=== PATIENT | female | born 1935 | race Caucasian/White ===

== ENCOUNTER 2017-05-27 09:15 | Observation (INO) | payer MEDICARE, SELFPAY ==
[2017-05-27] VITALS (13 sets, daily range): BP systolic 115–218; BP diastolic 52–111; PULSE 59–91; RESP 15–24; TEMP 36.4–36.7; O2SAT 93–100; BMI 28.0; BMI 29.4
--- NOTE | 2017-05-27 09:21 | CT_ITS ---
STUDY: CT BRAIN WITHOUT CONTRAST REASON FOR EXAM: Female, 81 years old. Mental status change, decrease in responsiveness, complaining of dizziness, history of hypertension, diabetes questioned. RADIATION DOSAGE (If Supplied By Facility): CTDIvol = ( 44.99 ) mGy, DLP = ( 728.62 ) mGycm TECHNIQUE: Transaxial CT imaging of the brain was performed without administration of intravenous contrast material. Multiplanar coronal and sagittal images were reformatted. Individualized dose optimization techniques were used for this CT. COMPARISON: CT brain noncontrast 07/15/2015 FINDINGS: Normal soft tissue structures. There is hyperostosis frontalis internus. There is mild cerebral atrophy with widening of the extra-axial spaces and ventricular dilatation. There are areas of decreased attenuation within the white matter tracts of the supratentorial brain, consistent with microvascular disease changes. Normal basal ganglia and thalami. Normal brainstem. Normal cerebellum. There is no intracranial hemorrhage. There are no findings of an acute ischemic infarction. Mild stable opacification left sphenoid sinus. Intracranial arteriosclerosis of the carotid and vertebral arteries. The bilateral mastoid air cells are clear. CT/Brain/Head without Contrast IMPRESSION: Chronic involutional changes of the brain. There is no acute intracranial pathology. There is no significant interval change. Electronically Signed: Jesusita Wofl MD at 10:29 EDT , Service support ,
--- NOTE | 2017-05-27 09:22 | EKG12_ITS ---
Test Reason : MENTAL STATUS CHANGE Blood Pressure : / mmHG Vent. Rate : 072 BPM Atrial Rate : 072 BPM P-R Int : 126 ms QRS Dur : 080 ms QT Int : 414 ms P-R-T Axes : 053 -45 028 degrees QTc Int : 453 ms Sinus rhythm with occasional Premature ventricular complexes Left anterior fascicular block Nonspecific ST abnormality Abnormal ECG Confirmed by LAKIA SUMMERS, ADDIS ([id number]), writer editor SANDRA FIORE ([id number]) on 05/29/2017 12:55:50 PM Referred By: OSMANI Confirmed By:ADDIS DORMAN MD
[2017-05-27 09:26] LABS: Bedside Glucose 102 mg/dL (70-110)
[2017-05-27] MEDS: 0.9% Normal Saline 1,000 ML 150 ML IV ×2 (09:27→17:49)
--- NOTE | 2017-05-27 09:32 | RAD_ITS ---
STUDY: X-RAY CHEST REASON FOR EXAM: Female, 81 years old. Weakness TECHNIQUE: Single AP portable view of the chest. COMPARISON: 07/17/2015 FINDINGS: The lungs are hyperaerated. There is no demonstrated pleural abnormality. There is borderline cardiomegaly. Normal mediastinum and celena. Normal visualized pulmonary arteries. There is atherosclerotic calcification of the aortic arch with tortuosity. There are diffuse degenerative changes of the visualized thoracic spine. There is degenerative osteoarthritis of the bilateral shoulders. There is no demonstrated abnormality of the visualized soft tissue structures of the upper abdomen. RAD/Chest 1 View (Portable) IMPRESSION: Stable hyperinflation likely COPD. There is stable borderline cardiac size, atherosclerosis, degenerative changes. No acute cardiopulmonary disease. No significant interval change. Electronically Signed: Jesusita Wolf MD at 10:27 EDT , Service support ,
[2017-05-27 09:50] LABS: Bacteria 0 SEEN /hpf (None Seen); Color, Urine Straw (Yellow); Glucose, Dipstick Normal (Normal); Ketone-Dipstick 50 mg/dl (Negative); Leukocyte Esterase-Dipstick Negative /ul (Negative); Mucous, Urine 0 SEEN /hpf (<or=2+); Nitrite-Dipstick Negative (Negative); Occult Blood-Urine Negative /ul (Negative); Protein-Dipstick Negative (Negative); Red Blood Cells-Urine 0 SEEN /hpf (0-5); Specific Gravity, Urine 1.015 (1.002-1.030); Squamous Epithelial Cells - UA 0 SEEN /hpf (5-10); Urine Bilirubin Dipstick Negative (Negative); Urine Clarity Clear (Clear); Urine Urobilinogen Normal (Normal); White Blood Cells 0 SEEN /hpf (0-5)
[2017-05-27 10:22] LABS: ALB/GLOB Ratio 1.2 RATIO (0.9-2.4); AST(SGOT) 23 U/L (15-37); Alanine Aminotransfer ALT/SGPT 14 U/L (13-56); Albumin, Serum 3.7 g/dL (3.2-5.0); Alkaline Phosphatase 41 U/L (45-117); Anion Gap 11 (5-15); BUN 21 mg/dL (7-18); BUN/Creat Ratio 22.5 RATIO (10-20); Chloride 101 mmol/L (98-107); Creatinine, Serum 0.93 mg/dL (0.55-1.02); EST Glomerular Filtration Rate 61 mL/min (>60); Est Glom Filt Rate - Afr Amer 74 mL/min (>60); Estimated Creatinine Clearance 45.17 ml/min; Globulin 3.2 g/dL (2.2-4.2); Glucose 112 mg/dL (74-106); Potassium 3.9 mmol/L (3.5-5.1); Protein, Total 6.9 g/dL (6.4-8.2); Sodium Level 138 mmol/L (136-145)
--- NOTE | 2017-05-27 10:30 | CT_ITS ---
STUDY: CT ABDOMEN AND PELVIS WITHOUT CONTRAST REASON FOR EXAM: Female, 81 years old. ABD PAIN, HX-HTN, DB, DECREASED LEVEL OF RESPONSIVENESS. RADIATION DOSAGE (If Supplied By Facility): CTDIvol = ( 13.62 ) mGy, DLP = ( 772.23 ) mGycm TECHNIQUE: Transaxial images were obtained from the dome of the diaphragm to the symphysis pubis without oral contrast, and without intravenous contrast. Sagittal and coronal images were reconstructed. Individualized dose optimization techniques were used for this CT. COMPARISON: None. FINDINGS: The visualized lung bases are unremarkable. The visualized portions of the heart are within normal limits. Normal liver. Normal gallbladder and extrahepatic biliary system. Normal spleen. Normal pancreas. Normal bilateral adrenal glands. Normal right kidney. Normal left kidney. Normal visualized stomach. Normal small intestine. There are multiple colonic diverticula consistent with diverticulosis. There is non-visualization of the appendix. There is diffuse atherosclerotic calcification of the abdominal aorta, without a demonstrated aneurysm. Normal inferior vena cava. Normal retroperitoneum. The urinary bladder is decompressed with a Patrick catheter Normal abdominal wall. There are diffuse degenerative changes of the visualized lumbar spine. CT/Abdomen/Pelvis without Cont IMPRESSION: No acute intra-abdominal or intrapelvic abnormality. Diverticulosis. Severe aortoiliac atherosclerosis. Electronically Signed: Dang Jovel MD at 11:18 EDT Tel , Service support ,
[2017-05-27 10:31] LABS: Absolute Neutrophil Count 3.6 X10^3/uL (2.0-7.7); Basophil# 0.01 X10^3/uL; Basophil% 0.2 % (0-1); Eosinophil# 0.03 X10^3/uL; Eosinophils% 0.6 % (0-5); Hematocrit 41.9 % (37-47); Hemoglobin 13.5 g/dl (12.0-15.0); Lymphocyte % 22.6 % (19-41); Mean Corp Hgb Conc 32.2 g/gl (32-36); Mean Corpuscular Hgb 29.3 pg (27.0-32.0); Mean Corpuscular Volume 91.1 fL (81-99); Mean Platelet Vol. 9.5 fl (6.2-12.0); Monocyte# 0.43 X10^3/uL; Monocyte% 8.1 % (0-10); Neutrophil # 3.62 X10^3/uL (2.7-7.7); Neutrophil % 68.3 % (47-70); Platelet Count 222 K/mm3 (150-450); RBC Distribution Width CV 12.8 % (11.6-14.6); RBC Distribution Width SD 42.5 fl (35.1-43.9); White Blood Count 5.3 K/mm3 (4.4-11.0)
[2017-05-27 10:32] LABS: POSITIVE COUNT NO; POSITIVE DIFFERENTIAL NO; POSITIVE MORPHOLOGY NO
[2017-05-27] MEDS: Ondansetron 4 MG/2 ML Vial IV (11:31)
[2017-05-27] MEDS: Morphine 4 MG/ML Syringe IV (11:32)
--- NOTE | 2017-05-27 11:41 | ED.DCSUM_ITS ---
- ER Visit Summary Date of Service: 05/27/17 Chief Complaint: [Mental status change] History of Present Illness: The patient is a 81 F [presents to the emergency department with a mental status change. Patient's son went over to her home this morning like he normally does and noted that her paper had not gone inside the house. Patient was found in her bed and unresponsive to him. EMS was called. Patient last known well yesterday as 1 of the neighbors spoke with the patient around 5:30 PM last evening. Patient has been having issues with abdominal pain and back pain for about a month. Patient had an ultrasound recently that showed gallstones in her gallbladder and possible mass in 1 of her kidneys. On arrival the emergency department patient is answering questions and describes pain all over. Patient also states that she has been dizzy. Patient states she got up in the middle the night and had dizziness. Patient denies any vomiting. She denies any fever.] Physical Examination: [HEENT-PERRLA, EOMI. Cranial nerves II through XII grossly intact. TMs clear. Mucous membranes moist. No adenopathy. Cardiovascular-regular rate and rhythm without murmur or ectopy Lungs-clear to auscultation, chest wall stable without crepitus or subcu emphysema Abdomen-normoactive bowel sounds, soft, nontender, no rebound or rigidity, no peritoneal signs. Neuro exam-NIH stroke scale 0. Finger to nose and heel to torres testing within normal limits, negative Romberg, negative pronator drift. Hallpike maneuver does not elicit any nystagmus and does not reproduce patient's dizziness. Extremities-intact ?4, normal range of motion, normal pulses, atraumatic] Test Results: [EKG obtained on arrival showed a sinus rhythm with a ventricular rate of 72 bpm with some nonspecific ST changes noted. CBC with differential was normal. Chemistries unremarkable. LFTs were normal. Troponin was less than 0.02. Urinalysis was normal. CT scan of the brain showed chronic involutional changes. Chest x-ray showed some COPD changes otherwise nothing acute. CT abdomen pelvis without contrast showed nothing acute.] Emergency Department Course and Treatment: [Patient was medicated with morphine and Zofran for her pain.] Treatment Plan: [Patient will be admitted for further workup and evaluation.] Disposition: [Admit] Impression: [Mental status change Dizziness Back pain/abdominal pain] This note was generated with [employer] dictation software. It may contain incorrect words, spelling, and punctuation that were not noted in review of the chart prior to signing ED Disposition - Plan for ED Patient: Chief Complaint: Alt LOC Referrals: Roxann Simmons MD [Primary Care Provider] -
--- NOTE | 2017-05-27 13:04 | PCM.HP.STD ---
Problem List (1) Breast cancer Status: Resolved (2) Depression Status: Acute Qualifiers: Depression Type: unspecified Qualified Code(s): F32.9 - Major depressive disorder, single episode, unspecified (3) Diabetes mellitus type 2 in nonobese Status: Chronic (4) Hyperlipidemia Status: Chronic Qualifiers: Hyperlipidemia type: unspecified Qualified Code(s): E78.5 - Hyperlipidemia, unspecified (5) Hypertension Status: Chronic Qualifiers: Hypertension type: unspecified secondary hypertension Qualified Code(s): I15.9 - Secondary hypertension, unspecified History of Present Illness Date of Admission: 05/27/17 Chief Complaint: Found down The patient is a 81 year old F medical history of diabetes type 2, depression, essential hypertension, breast cancer status post left mastectomy who was found down at home this morning. Her family found her in bed less responsive and they activated the EMS who brought her to the emergency room. At the time that she came to the emergency room she was alert and oriented to time place and person . She states that she woke up to use the BR last night significantly dizzy and she tried to walk back to her bed without falling. She is noted to have no speech impairment, focal deficit, no loss of bladder or bowel control was noted. CT scan of the head in the emergency room is none acute. She did complain of abdominal and back pain in the emergency room and CT scan of the abdomen and pelvis was obtained and showed no acute intra-abdominal or intrapelvic abnormality but showed severe aortoiliac atherosclerosis. Past Medical History Past Medical History (Chronic Problems): Chronic Problems Hypertension (Chronic) Diabetes mellitus type 2 in nonobese (Chronic) Hyperlipidemia (Chronic) Allergies Penicillins Allergy (Verified 05/27/17 09:37) Hives Sulfa (Sulfonamide Antibiotics) Allergy (Verified 05/27/17 09:37) Hives tramadol Adverse Reaction (Verified 05/27/17 09:37) Upset Stomach AND HEADACHE Home Medications: Ambulatory Orders Medication Instructions Recorded Hydrochlorothiazide [Hctz] 12.5 mg PO DAILY 12/19/13 Losartan Potassium [Cozaar] 100 mg PO DAILY 12/19/13 Metformin HCl [Glucophage] 500 mg PO BIDCM 12/19/13 Calcium (Elemental) [Os-Florentin 500] 1,000 mg PO DAILY@0800 07/15/15 Cholecalciferol (Vitamin D3) 5,000 unit PO DAILY 07/15/15 [Vitamin D3] Simvastatin [Zocor] 20 mg PO QHS 07/15/15 Tamoxifen Citrate [Nolvadex] 20 mg PO DAILY 07/15/15 Surgical History: - - Mastectomy Psychiatric History: No pertinent psych hx [employer] PROFESSOR History: No pertinent [employer] PROFESSOR history Smoking Status: Never smoker - *Family History Maternal History Items: No pertinent history Review of Systems Comment: All Systems were reviewed with pertinent positives mentioned in the HPI above. VTE Information - Inpt Only VTE Present on Admission: No VTE Mechan Device Prophylaxis: SCD's VTE Pharm Prophylaxis ordered?: No - Physical Exam General: Alert, Oriented x3 Oral: Moist Mucosa Neck: Supple Lungs: Clear to auscultation Cardiovascular: Regular rate, Normal S1, Normal S2 Abdomen: Bowel Sounds Present, Soft, Non Tender Extremities: No edema Neurological: Cranial nerves II-XII grossly intact, Deep Tendon Reflexes 2+/4 and Symmetrical, Motor Exam 5/5 strength throughout Vital Signs Temp Pulse Resp BP Pulse Ox 97.8 F 65 16 141/94 H 97 05/27/17 12:41 05/27/17 12:41 05/27/17 12:41 05/27/17 12:41 05/27/17 12:41 Oxygen Delivery Method Room Air Weight: 75.4 kg Body Mass Index (BMI) 29.4 Assessment/Plan 1. Acute change in mental status; this has now resolved, it was preceded by intractable vertiginous symptoms, therefore will obtain MRI of the brain to rule out posterior circulation CVA. We will also obtain carotid Doppler ultrasound as well as echocardiogram , will continue cardiac rhythm monitoring and she will be placed on aspirin and statin. PT/OT/ST. 2. DM type II; we will hold off on her metformin for now, she emeka be placed on regular insulin sliding scale for glycemic spikes. 3. Dyslipidemia; she is on a statin. 4. Breast cancer ; status post left mastectomy, we will continue her on Tamoxifen. 5. Severe aortoiliac atherosclerosis; will obtain CTA of the abdomen and go from there. 6. DVT prophylaxis with Lovenox. Code Visit Inpatient E&M: 81078 Init Hosp L2
--- NOTE | 2017-05-27 13:56 | ECHOD_ITS ---
Reason For Study: Arrhythmia Procedure This was a 2D Doppler, Color Flow transthoracic echocardiogram. Exam performed portable in patient room. Left Ventricle Normal LV size. Left ventricular systolic function is normal. The estimated ejection fraction is 60 %. Transmitral diastolic flow velocities suggest mild (stage 1) diastolic dysfunction (reversed pattern). No regional wall motion abnormalities noted. Right Ventricle Normal RV size. Normal systolic function. Atria The left atrium is mildly enlarged. Normal right atrium. Mitral Valve There is mild to moderate mitral annular calcification. Mild (1+) eccentric mitral valve insufficiency. Tricuspid Valve Normal tricuspid valve. Mild (1+) tricuspid valve insufficiency. Pulmonary artery systolic pressure is 35 mmHg. Aortic Valve Trisinus/trileaflet aortic valve. Mild focal aortic valve calcification. Mild aortic stenosis. Pulmonic Valve Normal pulmonic valve. Great Vessels Normal aortic root. The pulmonary artery is normal size. Normal inferior vena cava. Pericardium/Pleural No pericardial effusion. MMode/2D Measurements & Calculations LVIDd: 4.8 cm IVSd: 0.96 cm LVOT diam: 1.9 cm LVIDs: 3.1 cm LVPWd: 0.77 cm LVOT area: 2.9 cm2 RVDd: 3.4 cm FS: 37.0 % Ao root diam: 3.1 cm LAV(MOD-bp): 53.6 ml EDV(MOD-sp4): 52.5 ml LA dimension: 4.7 cm LAV(MOD-bp) Indexed: 30.0 ml/m2 ESV(MOD-sp4): 16.0 ml LAV(MOD-sp2): 40.7 ml EF(MOD-sp4): 69.4 % LAV(MOD-sp4): 54.5 ml SV(MOD-sp4): 36.4 ml LA A4 area: 21.5 cm2 RA A4 area: 15.0 cm2 Time Measurements MV dec time: 0.12 sec Doppler Measurements & Calculations MV E max christopher: 104.5 cm/sec Lat Peak E' Christopher: 8.6 cm/sec Med Peak E' Christopher: 7.8 cm/sec MV A max christopher: 129.9 cm/sec E/E' lat: 12.2 E/E' med: 13.4 MV E/A: 0.80 MV V2 max: 158.7 cm/sec MV P1/2t max christopher: 117.8 cm/sec Ao V2 max: 214.9 cm/sec MV max P.1 mmHg MV P1/2t: 77.1 msec Ao max P.5 mmHg MV V2 mean: 89.3 cm/sec MV dec slope: 447.3 cm/sec2 Ao V2 mean: 145.5 cm/sec MV mean P.7 mmHg MVA(P1/2t): 2.9 cm2 Ao mean P.5 mmHg MV V2 VTI: 47.5 cm Ao V2 VTI: 50.3 cm MVA(VTI): 1.9 cm2 MARLIN(I,D): 1.8 cm2 MARLIN(V,D): 1.6 cm2 LV V1 max: 116.5 cm/sec SV(LVOT): 88.6 ml PA V2 max: 98.8 cm/sec LV V1 max P.4 mmHg LV V1 mean P.1 mmHg LV V1 mean: 83.8 cm/sec LV V1 VTI: 30.3 cm TR max christohper: 278.5 cm/sec TR max P.0 mmHg Interpretation Summary Normal LV size. Left ventricular systolic function is normal. The estimated ejection fraction is 60 %. The left atrium is mildly enlarged. Transmitral diastolic flow velocities suggest mild (stage 1) diastolic dysfunction (reversed pattern). Ordering Physician: Timi Acosta Referring Physician: Roxann Simmons Performed By: Palmira Daigle, CHELSEA, RVT
--- NOTE | 2017-05-27 13:57 | CDU_ITS ---
Reason For Study: CVA Rt. Velocities/BP Lt. Velocities/BP Prox CCA 54.6/9.82 cm/sec. Prox CCA 64.0/11.4 cm/sec. Mid CCA 78.2/14.1 cm/sec. Mid CCA 143.0/25.9 cm/sec. Dist CCA 92.6/19.3 cm/sec. Dist CCA 136.0/25.9 cm/sec. Prox ICA 86.2/17.6 cm/sec. Prox ICA 112.0/25.1 cm/sec. Mid ICA 86.8/22.3 cm/sec. Mid ICA 104.0/26.7 cm/sec. Dist ICA 101.0/28.1 cm/sec. Dist ICA 90.5/23.8 cm/sec. Rt. ICA/CCA = 101.0/78.2=1.3. Lt. ICA/CCA = 112.0/143.0=0.8. Prox ECA 54.5/0.0 cm/sec. Prox ECA 138.0/8.64 cm/sec. Rt. Vert. 47.5/12.2 cm/sec. Lt. Vert. 30.2/8.57 cm/sec. Right Extracranial There is heterogeneous, irregular atherosclerotic plaque noted in the right common carotid artery. There is heterogeneous, irregular atherosclerotic plaque noted in the right internal carotid artery. There is homogeneous, smooth atherosclerotic plaque noted in the right external carotid artery. Antegrade flow is noted in the right vertebral artery. There is heterogeneous, irregular atherosclerotic plaque noted in the right bulb. Left Extracranial There is heterogeneous, irregular atherosclerotic plaque noted in the left common carotid artery. There is heterogeneous, irregular atherosclerotic plaque noted in the left internal carotid artery. There is heterogeneous, irregular atherosclerotic plaque noted in the left external carotid artery. Antegrade flow is noted in the left vertebral artery. Procedure Carotid Duplex [id number]. The exam was diagnostic. Exam performed portable in patient room. Interpretation Summary Smooth, calcific plague at the proximal right internal carotid with <50% stenosis. Normal flow right external carotid Irregular plague within the left common carotid and proximal internal carotid with <50% stenosis. Mild disease left external carotid Patent and antegrade vertebrals bilaterally Ordering Physician: Timi Acosta Referring Physician: Roxann Simmons Performed By: Maria C Gonzalez, CHELSEA, RVT
--- NOTE | 2017-05-27 14:19 | CT_ITS ---
STUDY: CT ABDOMEN AND PELVIS WITH CONTRAST REASON FOR EXAM: Female, 81 years old. Atherosclerotic disease RADIATION DOSAGE (If Supplied By Facility): CTDIvol = ( 27.78 ) mGy, DLP = ( 944.46 ) mGycm TECHNIQUE: Transaxial images were obtained from the dome of the diaphragm to the symphysis pubis without oral contrast. 75 ml of Isovue 370 contrast was administered. Sagittal and coronal images were reconstructed. Individualized dose optimization techniques were used for this CT. COMPARISON: 05/27/2017 FINDINGS: There is atelectasis at the lung bases. The visualized portions of the heart and pericardium are within normal limits. There are coronary artery calcifications noted. There are no calcified gallstones present. The liver is within normal limits. There are no suspicious hepatic lesions. The spleen is normal in size. The pancreas is within normal limits. The adrenal glands are within normal limits. There are no obstructing renal stones. There is no hydronephrosis. There are no focal renal lesions. Normal visualized stomach. There is no bowel obstruction or inflammation. The appendix is not visualized, but there are no findings to suggest acute appendicitis. There are atherosclerotic plaques in the aorta and its branches. There is no evidence of abdominal aortic aneurysm or dissection. The celiac artery, superior mesenteric artery, bilateral renal arteries and inferior mesenteric artery are patent. The bilateral common iliac, internal iliac and external iliac arteries are patent and normal in caliber. There is no abdominal or pelvic free air, free fluid, fluid collection or lymphadenopathy. The patient is status post hysterectomy. There are no destructive osseous lesions. CT/CT ANGIO ABD&PEL W/O&W/DYE IMPRESSION: Atherosclerosis and coronary artery disease. No evidence of abdominal aortic aneurysm or dissection. No significant arterial stenosis in the abdomen or pelvis. Electronically Signed: Lexx Robbins, at 16:09 EDT Tel , Service support ,
[2017-05-27 16:56] LABS: Bedside Glucose 121 mg/dL (70-110)
--- NOTE | 2017-05-27 18:36 | NURSING ---
Reviewed and agreed on all charting with Jan Romero RN
[2017-05-27 21:16] LABS: Bedside Glucose 87 mg/dL (70-110)
[2017-05-27] MEDS: Atorvastatin Calcium 10 MG Tablet PO (21:17)
[2017-05-28] VITALS (12 sets, daily range): BP systolic 112–164; BP diastolic 52–77; PULSE 58–76; RESP 16–18; TEMP 36.4–37; O2SAT 94–96; BMI 29.4
[2017-05-28] MEDS: 0.9% Normal Saline 1,000 ML 150 ML IV ×3 (00:15→13:30)
[2017-05-28 05:37] LABS: Absolute Lymphocyte Count 1.26 X10^3/ul (0.83-4.51); Absolute Neutrophil Count 2.9 X10^3/uL (2.0-7.7); Basophil# 0.01 X10^3/uL; Basophil% 0.2 % (0-1); Eosinophil# 0.07 X10^3/uL; Eosinophils% 1.4 % (0-5); Hematocrit 36.8 % (37-47); Hemoglobin 12.2 g/dl (12.0-15.0); Lymphocyte # 1.26 X10^3/ul (4.0); Mean Corp Hgb Conc 33.2 g/gl (32-36); Mean Corpuscular Hgb 30.6 pg (27.0-32.0); Mean Corpuscular Volume 92.2 fL (81-99); Mean Platelet Vol. 9.7 fl (6.2-12.0); Monocyte# 0.57 X10^3/uL; Monocyte% 11.8 % (0-10); Neutrophil # 2.92 X10^3/uL (2.7-7.7); Neutrophil % 60.4 % (47-70); Platelet Count 203 K/mm3 (150-450); RBC Distribution Width CV 12.7 % (11.6-14.6); RBC Distribution Width SD 41.8 fl (35.1-43.9); Red Blood Count 3.99 M/mm3 (4.2-5.4); White Blood Count 4.8 K/mm3 (4.4-11.0)
[2017-05-28] MEDS: Naproxen 250 MG Tablet PO ×2 (05:44→21:13)
[2017-05-28] MEDS: Enoxaparin 40 MG/0.4 ML Syringe SC (05:44)
[2017-05-28 05:58] LABS: Anion Gap 8 (5-15); BUN 14 mg/dL (7-18); BUN/Creat Ratio 18.1 RATIO (10-20); Calcium,Total 8.1 mg/dL (8.5-10.1); Chloride 107 mmol/L (98-107); Cholesterol 103 mg/dL (200); Creatinine, Serum 0.78 mg/dL (0.55-1.02); EST Glomerular Filtration Rate 76 mL/min (>60); Est Glom Filt Rate - Afr Amer 92 mL/min (>60); Estimated Creatinine Clearance 37.12 ml/min; Glucose 87 mg/dL (74-106); High Density Lipoprotein 52 mg/dL; Potassium 3.9 mmol/L (3.5-5.1); Sodium Level 141 mmol/L (136-145); Triglycerides 70 mg/dL; Very Low Density Lipoprotein 14 mg/dL (5-40)
[2017-05-28 06:03] LABS: POSITIVE COUNT NO; POSITIVE DIFFERENTIAL NO; POSITIVE MORPHOLOGY NO
--- NOTE | 2017-05-28 06:57 | MRI_ITS ---
STUDY: MRI BRAIN WITHOUT CONTRAST REASON FOR EXAM: Female, 81 years old. Confusion and dizziness TECHNIQUE: Standardized multiplanar fat and water weighted pulse sequences were obtained. COMPARISON: CT of the brain on May 27, 2017. FINDINGS: Mild age-appropriate atrophy. Normal white matter tracts of the supratentorial brain. Normal bilateral basal ganglia. Normal thalami. There is no extra-axial fluid accumulation. Normal flow voids within the major intracranial circulation suggesting patency by spin echo criteria. Normal sella turcica, pituitary gland, infundibular stalk, optic chiasm and hypothalamus. Normal tectal plate and pineal gland. Normal midbrain, jhonathan and medulla. Normal cerebellum. Normal basal cisterns. Normal bilateral temporal bones. Normal bilateral internal auditory canals. There are postsurgical changes of the left orbit.. There is mild mucosal thickening of the ethmoid air cells bilaterally and left sphenoid sinus... Normal calvarium and skull base. Normal visualized soft tissue structures. Normal visualized upper cervical spine. MRI/Brain without Contrast IMPRESSION: Mild age-appropriate atrophy. No significant white matter disease or evidence for acute infarct. Mild bilateral ethmoid and left sphenoid sinus disease. Electronically Signed: Donaldo Guzman MD at 16:20 EDT , Service support ,
[2017-05-28 07:00] LABS: Bedside Glucose 85 mg/dL (70-110)
[2017-05-28] MEDS: Aspirin 81 MG TAB.CHEW PO (07:52)
[2017-05-28] MEDS: Calcium (Elemental) 500 MG Tablet 1000 MG PO (07:53)
[2017-05-28] MEDS: HYDROCHLOROTHIAZIDE 12.5 MG CAPSULE PO (09:12)
[2017-05-28] MEDS: Tamoxifen 10 MG Tablet 20 MG PO (09:12)
[2017-05-28] MEDS: Losartan Potassium 100 MG Tablet PO (09:12)
[2017-05-28 11:56] LABS: Bedside Glucose 106 mg/dL (70-110)
[2017-05-28] MEDS: Glucerna Shake 120 ML LIQUID PO ×2 (13:30→17:28)
[2017-05-28 17:26] LABS: Bedside Glucose 168 mg/dL (70-110)
--- NOTE | 2017-05-28 17:38 | RAD_ITS ---
STUDY: X-RAY - LUMBAR SPINE REASON FOR EXAM: Female, 81 years old. Lower back pain TECHNIQUE: 3 view(s) of the lumbar spine were obtained. COMPARISON: CT abdomen pelvis sagittal views 05/27/2017 FINDINGS: Normal lumbar lordosis. There is no substantial scoliosis. There is a normal alignment of the vertebrae. There is diffuse demineralization with multi-level endplate spondylosis. There is multi-level degenerative disc disease with multi-level disc space narrowing. Plaque in this formation L1-2, L2-3, L3-4 with posterior spurring L3-4 and neuroforaminal narrowing, left L2-3. Facet arthropathy L2-L5/S1 with neural foraminal narrowing L5-S1. There is atherosclerotic calcification of the abdominal aorta without a demonstrated aneurysm. RAD/Lumbar Spine 2 or 3 Views IMPRESSION: Degenerative changes of the spine, as detailed above. Electronically Signed: Jesusita Wolf MD at 0:31 EDT , Service support ,
--- NOTE | 2017-05-28 18:30 | PCM.PROGNOTE ---
Subjective: He was seen and examined today, all her studies thus far have been unremarkable, the exact etiology of her altered mental status is unknown at this time. Physical therapy saw the patient and recommended skilled therapy, patient does not feel that she can return home alone and would opt to go short-term to a penitentiary facility. Daughters are in the room during my discussion or and or in agreement, 1 daughter lives remotely from the patient and the other daughter is having surgery on Sunday for knee replacement. - Physical Exam General: Alert, Oriented x3, Cooperative, No apparent distress, Well developed HEENT: Atraumatic, PERRLA, EOMI, Normocephalic Oral: Moist Mucosa Neck: Supple, No JVD, No Nuchal Rigidity, Trachea Midline, Thyroid Normal Size and Texture Lungs: Clear to auscultation, Normal air movement, No rhonchi, No wheeze, No rales Cardiovascular: Regular rate, No murmurs Abdomen: Bowel Sounds Present, Soft, Non Tender, Non-Distended, No hernias noted Extremities: No edema, Capillary Refill Less than 3 Seconds Skin: No rashes, No breakdown Musculoskeletal: No Tenderness to Palpation of Joints or Extremities Neurological: Cranial nerves II-XII grossly intact, Neuro grossly intact, Sensory exam intact to light touch and pain, Coordination normal Psych/Mental Status: Normal Affect, Appropriate, Alert and oriented to time, place, person, mood and affect Vital Signs Temp Pulse Resp BP Pulse Ox 98 F 76 16 112/57 L 95 05/28/17 17:10 05/28/17 17:10 05/28/17 17:10 05/28/17 17:10 05/28/17 17:10 Oxygen Delivery Method Room Air Weight: 75.4 kg Body Mass Index (BMI) 29.4 Intake and Output for Last 24 Hours 05/26/17 05/27/17 05/28/17 23:59 23:59 23:59 Intake Total 1130 / 1130 4004 / 4004 Output Total 1575 / 1575 2600 / 2600 Balance -445 / -445 1404 / 1404 Laboratory Tests Past 24 Hrs 05/28/17 05/28/17 05:14 05:14 WBC 4.8 RBC 3.99 L Hgb 12.2 Hct 36.8 L MCV 92.2 MCH 30.6 MCHC 33.2 RDW 12.7 RDW Differential 41.8 Plt Count 203 MPV 9.7 Immature Gran % (Auto) 0.200 Neut % (Auto) 60.4 Lymph % (Auto) 26.0 [place] % (Auto) 11.8 H Eos % (Auto) 1.4 Baso % (Auto) 0.2 Absolute Neuts (auto) 2.9 Absolute Lymphs (auto) 1.26 Total Counted Not Reportable Sodium 141 Potassium 3.9 Chloride 107 Carbon Dioxide 26.0 Anion Gap 8 BUN 14 Creatinine 0.78 Estim Creat Clear Calc 37.12 Est GFR (MDRD) Af Amer 92 Est GFR (MDRD) Non-Af 76 BUN/Creatinine Ratio 18.1 Glucose 87 Calcium 8.1 L Triglycerides 70 Cholesterol 103 LDL Cholesterol 37 VLDL Cholesterol 14 HDL Cholesterol 52 POC Glucose 05/28/17 05/28/17 05/28/17 17:18 11:29 06:50 POC Glucose 168 H 106 85 05/27/17 21:13 POC Glucose 87 Medical Necessity - Tobacco Use Smoking Status: Never smoker Assessment/Plan #1 mental status change-now resolved, etiology unclear, this does not appear to be secondary to medication reaction or a TIA, continue PT and OT #2 complaints of lower lumbar discomfort on the left-I will obtain a lumbar spine x-ray on the patient #3 type 2 diabetes-continue present care, patient is on sliding scale insulin only #4 hypertension-continue present care #5 hyperlipidemia #6 history of breast cancer #7 generalized debility-patient will need short-term placement in penitentiary facility Code Visit OBSV E&M: 95843 Subsequent observation care L3
--- NOTE | 2017-05-28 18:35 | PN_ITS ---
Subjective: He was seen and examined today, all her studies thus far have been unremarkable , the exact etiology of her altered mental status is unknown at this time. Physical therapy saw the patient and recommended skilled therapy, patient does not feel that she can return home alone and would opt to go short-term to a care home facility. Daughters are in the room during my discussion or and or in agreement, 1 daughter lives remotely from the patient and the other daughter is having surgery on Sunday for knee replacement. - Physical Exam General: Alert, Oriented x3, Cooperative, No apparent distress, Well developed HEENT: Atraumatic, PERRLA, EOMI, Normocephalic Oral: Moist Mucosa Neck: Supple, No JVD, No Nuchal Rigidity, Trachea Midline, Thyroid Normal Size and Texture Lungs: Clear to auscultation, Normal air movement, No rhonchi, No wheeze, No rales Cardiovascular: Regular rate, No murmurs Abdomen: Bowel Sounds Present, Soft, Non Tender, Non-Distended, No hernias noted Extremities: No edema, Capillary Refill Less than 3 Seconds Skin: No rashes, No breakdown Musculoskeletal: No Tenderness to Palpation of Joints or Extremities Neurological: Cranial nerves II-XII grossly intact, Neuro grossly intact, Sensory exam intact to light touch and pain, Coordination normal Psych/Mental Status: Normal Affect, Appropriate, Alert and oriented to time, place, person, mood and affect Vital Signs Temp Pulse Resp BP Pulse Ox 98 F 76 16 112/57 L 95 05/28/17 17:10 05/28/17 17:10 05/28/17 17:10 05/28/17 17:10 05/28/17 17:10 Oxygen Delivery Method Room Air Weight: 75.4 kg Body Mass Index (BMI) 29.4 Intake and Output for Last 24 Hours 05/26/17 05/27/17 05/28/17 23:59 23:59 23:59 Intake Total 1130 / 1130 4004 / 4004 Output Total 1575 / 1575 2600 / 2600 Balance -445 / -445 1404 / 1404 Laboratory Tests Past 24 Hrs 05/28/17 05/28/17 05:14 05:14 WBC 4.8 RBC 3.99 L Hgb 12.2 Hct 36.8 L MCV 92.2 MCH 30.6 MCHC 33.2 RDW 12.7 RDW Differential 41.8 Plt Count 203 MPV 9.7 Immature Gran % (Auto) 0.200 Neut % (Auto) 60.4 Lymph % (Auto) 26.0 [place] % (Auto) 11.8 H Eos % (Auto) 1.4 Baso % (Auto) 0.2 Absolute Neuts (auto) 2.9 Absolute Lymphs (auto) 1.26 Total Counted Not Reportable Sodium 141 Potassium 3.9 Chloride 107 Carbon Dioxide 26.0 Anion Gap 8 BUN 14 Creatinine 0.78 Estim Creat Clear Calc 37.12 Est GFR (MDRD) Af Amer 92 Est GFR (MDRD) Non-Af 76 BUN/Creatinine Ratio 18.1 Glucose 87 Calcium 8.1 L Triglycerides 70 Cholesterol 103 LDL Cholesterol 37 VLDL Cholesterol 14 HDL Cholesterol 52 POC Glucose 05/28/17 05/28/17 05/28/17 17:18 11:29 06:50 POC Glucose 168 H 106 85 05/27/17 21:13 POC Glucose 87 Medical Necessity - Tobacco Use Smoking Status: Never smoker Assessment/Plan #1 mental status change-now resolved, etiology unclear, this does not appear to be secondary to medication reaction or a TIA, continue PT and OT #2 complaints of lower lumbar discomfort on the left-I will obtain a lumbar spine x-ray on the patient #3 type 2 diabetes-continue present care, patient is on sliding scale insulin only #4 hypertension-continue present care #5 hyperlipidemia #6 history of breast cancer #7 generalized debility-patient will need short-term placement in care home facility Code Visit OBSV E&M: 89595 Subsequent observation care L3
[2017-05-28] MEDS: Atorvastatin Calcium 10 MG Tablet PO (21:13)
[2017-05-28 21:40] LABS: Bedside Glucose 96 mg/dL (70-110)
[2017-05-29] VITALS (10 sets, daily range): BP systolic 102–153; BP diastolic 36–83; PULSE 60–88; RESP 14–19; TEMP 36.4–37.1; O2SAT 95–98
[2017-05-29] MEDS: Enoxaparin 40 MG/0.4 ML Syringe SC (05:16)
[2017-05-29 06:10] LABS: Absolute Lymphocyte Count 1.32 X10^3/ul (0.83-4.51); Absolute Neutrophil Count 2.7 X10^3/uL (2.0-7.7); Basophil# 0.02 X10^3/uL; Basophil% 0.4 % (0-1); Eosinophil# 0.09 X10^3/uL; Eosinophils% 1.9 % (0-5); Hematocrit 38.4 % (37-47); Hemoglobin 12.7 g/dl (12.0-15.0); Lymphocyte # 1.32 X10^3/ul (4.0); Lymphocyte % 27.9 % (19-41); Mean Corp Hgb Conc 33.1 g/gl (32-36); Mean Corpuscular Hgb 30.2 pg (27.0-32.0); Mean Corpuscular Volume 91.4 fL (81-99); Mean Platelet Vol. 9.7 fl (6.2-12.0); Monocyte# 0.59 X10^3/uL; Monocyte% 12.5 % (0-10); Neutrophil % 57.1 % (47-70); Platelet Count 207 K/mm3 (150-450); RBC Distribution Width CV 12.6 % (11.6-14.6); RBC Distribution Width SD 41.2 fl (35.1-43.9); White Blood Count 4.7 K/mm3 (4.4-11.0)
[2017-05-29 06:13] LABS: Anion Gap 7 (5-15); BUN 11 mg/dL (7-18); BUN/Creat Ratio 14.6 RATIO (10-20); Calcium,Total 8.7 mg/dL (8.5-10.1); Chloride 107 mmol/L (98-107); Creatinine, Serum 0.76 mg/dL (0.55-1.02); EST Glomerular Filtration Rate 78 mL/min (>60); Est Glom Filt Rate - Afr Amer 95 mL/min (>60); Estimated Creatinine Clearance 37.12 ml/min; Glucose 94 mg/dL (74-106); Potassium 3.9 mmol/L (3.5-5.1); Sodium Level 140 mmol/L (136-145)
[2017-05-29 06:21] LABS: POSITIVE COUNT NO; POSITIVE DIFFERENTIAL NO; POSITIVE MORPHOLOGY NO
[2017-05-29 06:56] LABS: Bedside Glucose 90 mg/dL (70-110)
[2017-05-29] MEDS: Calcium (Elemental) 500 MG Tablet 1000 MG PO (08:06)
[2017-05-29] MEDS: Aspirin 81 MG TAB.CHEW PO (08:06)
[2017-05-29] MEDS: Tamoxifen 10 MG Tablet 20 MG PO (09:33)
[2017-05-29] MEDS: HYDROCHLOROTHIAZIDE 12.5 MG CAPSULE PO (09:33)
[2017-05-29] MEDS: Losartan Potassium 100 MG Tablet PO (09:33)
[2017-05-29] MEDS: Glucerna Shake 120 ML LIQUID PO ×2 (09:34→13:59)
[2017-05-29] MEDS: Magnesium Hydroxide 30 ML UDC PO (09:34)
[2017-05-29] MEDS: Naproxen 250 MG Tablet PO (09:34)
--- NOTE | 2017-05-29 11:04 | CASEMGMT ---
TIM met with patient and her family. Patient's first choice would be TCU and second would be [facility]. Patient wanted to know her fdc benefits. TIM told her SW will check on this and will also make a referral to TCU. TIM spoke with [facility] who is covering TCU and after reviewing patient they can accept her. She will start the process to obtain insurance authorization. TIM called [employer] and obtained patient's SNF benefits. They are as follows: days 1-20 covered at 100% and days 21-100 there is a $137.50 per day co-pay for in network and out of network is the same except the co-pay for days 21-100 is $167.50 per day. TIM wrote down this information. TIM spoke with patient and her family letting them know that TCU can take her and told them her SNF benefits as well as gave them the information in writing. TIM explained that patient will wait here until insurance gives the okay to move her to TCU. Plan: [facility] TCU under skilled level of care pending insurance approval. Radha ZIMMERMAN MSW
[2017-05-29 11:40] LABS: Bedside Glucose 145 mg/dL (70-110)
--- NOTE | 2017-05-29 15:37 | CHAPLAIN ---
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
[2017-05-29 16:21] LABS: Bedside Glucose 146 mg/dL (70-110)
--- NOTE | 2017-05-29 16:32 | CHAPLAIN ---
Type of Pastoral Visit _x__ Initial Visit ___ Follow-up Visit ___ On-call Visit ___ General Patient Visit ___ Spiritual Assessment ___ Family Conference ___ Bereavement ___ Rapid Response ___ Code Blue ___ Other (describe below) Pastoral Care Referral From _x__ Patient ___ Family ___ Nurse ___ Physician ___ Telehealth Coordinator ___ Campus Administrative Assistant ___ Other (describe below) Sacrament/Intervention _x__ Active listening ___ Anointing ___ Faith ___ Bereavement ___ Communion ___ Ginger exploration ___ ___ Life review _x__ Prayer ___ Reconciliation ___ Sacrament of Sick _x__ Supportive presence ___ Wedding ___ Other (describe below) Pastoral Comments
--- NOTE | 2017-05-29 17:11 | PCM.PROGNOTE ---
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 We are in the process of getting approval to have her go to an extended care facility temporarily for rehab. - Physical Exam General: Alert, Oriented x3, Cooperative, No apparent distress, Well developed HEENT: Atraumatic, PERRLA, EOMI, Normocephalic Oral: Moist Mucosa Neck: Supple, No JVD, Negative Carotid Bruits, Trachea Midline, Thyroid Normal Size and Texture Lungs: Clear to auscultation, Normal air movement, No rhonchi, No wheeze, No rales Cardiovascular: Regular rate, Regular Rhythm, No murmurs, Murmur - 2/6 systolic murmur is noted at the right sternal border and left sternal border, - - occassional ectopic beats are noted Abdomen: Bowel Sounds Present, Soft, Non Tender, Non-Distended, No hernias noted Extremities: No clubbing, No cyanosis, No edema, Capillary Refill Less than 3 Seconds Skin: No rashes, No breakdown Musculoskeletal: No Tenderness to Palpation of Joints or Extremities Neurological: Cranial nerves II-XII grossly intact, Neuro grossly intact, Sensory exam intact to light touch and pain, Coordination normal Psych/Mental Status: Normal Affect, Appropriate, Alert and oriented to time, place, person, mood and affect Vital Signs Temp Pulse Resp BP Pulse Ox 98.1 F 86 19 H 102/36 L 95 05/29/17 15:00 05/29/17 15:12 05/29/17 15:00 05/29/17 15:00 05/29/17 15:00 Oxygen Delivery Method Room Air Weight: 75.4 kg Body Mass Index (BMI) 29.4 Intake and Output for Last 24 Hours 05/27/17 05/28/17 05/29/17 23:59 23:59 23:59 Intake Total 1130 / 1130 4004 / 4004 360 / 360 Output Total 1575 / 1575 2600 / 2600 Balance -445 / -445 1404 / 1404 360 / 360 Laboratory Tests Past 24 Hrs 05/29/17 05/29/17 05:35 05:35 WBC 4.7 RBC 4.20 Hgb 12.7 Hct 38.4 MCV 91.4 MCH 30.2 MCHC 33.1 RDW 12.6 RDW Differential 41.2 Plt Count 207 MPV 9.7 Immature Gran % (Auto) 0.200 Neut % (Auto) 57.1 Lymph % (Auto) 27.9 [place] % (Auto) 12.5 H Eos % (Auto) 1.9 Baso % (Auto) 0.4 Absolute Neuts (auto) 2.7 Absolute Lymphs (auto) 1.32 Total Counted Not Reportable Sodium 140 Potassium 3.9 Chloride 107 Carbon Dioxide 26.0 Anion Gap 7 BUN 11 Creatinine 0.76 Estim Creat Clear Calc 37.12 Est GFR (MDRD) Af Amer 95 Est GFR (MDRD) Non-Af 78 BUN/Creatinine Ratio 14.6 Glucose 94 Calcium 8.7 POC Glucose 05/29/17 05/29/17 05/29/17 16:13 11:38 06:39 POC Glucose 146 H 145 H 90 05/28/17 05/28/17 21:10 17:18 POC Glucose 96 168 H Medical Necessity - Tobacco Use Smoking Status: Never smoker Assessment/Plan #1 mental status change-now resolved, etiology unclear, this does not appear to be secondary to medication reaction or a TIA, continue PT and OT, patient will need short-term placement in halfway facility #2 complaints of lower lumbar discomfort on the left-secondary to degenerative joint disease of the lumbar spine, I recommended Tylenol or prudent use of ibuprofen #3 type 2 diabetes-continue present care, patient is on sliding scale insulin only #4 hypertension-continue present care #5 hyperlipidemia #6 history of breast cancer #7 generalized debility-patient will need short-term placement in halfway facility Code Visit Inpatient E&M: 62470 Subs Hosp L2 OBSV E&M: 40851 Subsequent observation care L2
--- NOTE | 2017-05-29 17:35 | PN_ITS ---
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 We are in the process of getting approval to have her go to an extended care facility temporarily for rehab. - Physical Exam General: Alert, Oriented x3, Cooperative, No apparent distress, Well developed HEENT: Atraumatic, PERRLA, EOMI, Normocephalic Oral: Moist Mucosa Neck: Supple, No JVD, Negative Carotid Bruits, Trachea Midline, Thyroid Normal Size and Texture Lungs: Clear to auscultation, Normal air movement, No rhonchi, No wheeze, No rales Cardiovascular: Regular rate, Regular Rhythm, No murmurs, Murmur - 2/6 systolic murmur is noted at the right sternal border and left sternal border, - - occassional ectopic beats are noted Abdomen: Bowel Sounds Present, Soft, Non Tender, Non-Distended, No hernias noted Extremities: No clubbing, No cyanosis, No edema, Capillary Refill Less than 3 Seconds Skin: No rashes, No breakdown Musculoskeletal: No Tenderness to Palpation of Joints or Extremities Neurological: Cranial nerves II-XII grossly intact, Neuro grossly intact, Sensory exam intact to light touch and pain, Coordination normal Psych/Mental Status: Normal Affect, Appropriate, Alert and oriented to time, place, person, mood and affect Vital Signs Temp Pulse Resp BP Pulse Ox 98.1 F 86 19 H 102/36 L 95 05/29/17 15:00 05/29/17 15:12 05/29/17 15:00 05/29/17 15:00 05/29/17 15:00 Oxygen Delivery Method Room Air Weight: 75.4 kg Body Mass Index (BMI) 29.4 Intake and Output for Last 24 Hours 05/27/17 05/28/17 05/29/17 23:59 23:59 23:59 Intake Total 1130 / 1130 4004 / 4004 360 / 360 Output Total 1575 / 1575 2600 / 2600 Balance -445 / -445 1404 / 1404 360 / 360 Laboratory Tests Past 24 Hrs 05/29/17 05/29/17 05:35 05:35 WBC 4.7 RBC 4.20 Hgb 12.7 Hct 38.4 MCV 91.4 MCH 30.2 MCHC 33.1 RDW 12.6 RDW Differential 41.2 Plt Count 207 MPV 9.7 Immature Gran % (Auto) 0.200 Neut % (Auto) 57.1 Lymph % (Auto) 27.9 [place] % (Auto) 12.5 H Eos % (Auto) 1.9 Baso % (Auto) 0.4 Absolute Neuts (auto) 2.7 Absolute Lymphs (auto) 1.32 Total Counted Not Reportable Sodium 140 Potassium 3.9 Chloride 107 Carbon Dioxide 26.0 Anion Gap 7 BUN 11 Creatinine 0.76 Estim Creat Clear Calc 37.12 Est GFR (MDRD) Af Amer 95 Est GFR (MDRD) Non-Af 78 BUN/Creatinine Ratio 14.6 Glucose 94 Calcium 8.7 POC Glucose 05/29/17 05/29/17 05/29/17 16:13 11:38 06:39 POC Glucose 146 H 145 H 90 05/28/17 05/28/17 21:10 17:18 POC Glucose 96 168 H Medical Necessity - Tobacco Use Smoking Status: Never smoker Assessment/Plan #1 mental status change-now resolved, etiology unclear, this does not appear to be secondary to medication reaction or a TIA, continue PT and OT, patient will need short-term placement in residential facility #2 complaints of lower lumbar discomfort on the left-secondary to degenerative joint disease of the lumbar spine, I recommended Tylenol or prudent use of ibuprofen #3 type 2 diabetes-continue present care, patient is on sliding scale insulin only #4 hypertension-continue present care #5 hyperlipidemia #6 history of breast cancer #7 generalized debility-patient will need short-term placement in residential facility Code Visit Inpatient E&M: 04931 Subs Hosp L2 OBSV E&M: [id number] Subsequent observation care L2
[2017-05-29] MEDS: Atorvastatin Calcium 10 MG Tablet PO (21:32)
[2017-05-29 21:40] LABS: Bedside Glucose 80 mg/dL (70-110)
[2017-05-30] VITALS (7 sets, daily range): BP systolic 127–144; BP diastolic 54–71; PULSE 57–101; RESP 16–18; TEMP 36.2–36.6; O2SAT 93–97
[2017-05-30] MEDS: Naproxen 250 MG Tablet PO (02:12)
[2017-05-30 06:08] LABS: Absolute Lymphocyte Count 1.54 X10^3/ul (0.83-4.51); Absolute Neutrophil Count 2.9 X10^3/uL (2.0-7.7); Basophil# 0.02 X10^3/uL; Basophil% 0.4 % (0-1); Eosinophils% 1.9 % (0-5); Hematocrit 37.5 % (37-47); Hemoglobin 12.4 g/dl (12.0-15.0); Lymphocyte # 1.54 X10^3/ul (4.0); Mean Corp Hgb Conc 33.1 g/gl (32-36); Mean Corpuscular Volume 90.6 fL (81-99); Mean Platelet Vol. 9.3 fl (6.2-12.0); Monocyte# 0.62 X10^3/uL; Monocyte% 12.1 % (0-10); Neutrophil # 2.85 X10^3/uL (2.7-7.7); Neutrophil % 55.4 % (47-70); Platelet Count 207 K/mm3 (150-450); RBC Distribution Width CV 12.6 % (11.6-14.6); RBC Distribution Width SD 41.4 fl (35.1-43.9); Red Blood Count 4.14 M/mm3 (4.2-5.4); White Blood Count 5.1 K/mm3 (4.4-11.0)
[2017-05-30 06:09] LABS: POSITIVE COUNT NO; POSITIVE DIFFERENTIAL NO; POSITIVE MORPHOLOGY NO
[2017-05-30 06:24] LABS: Anion Gap 7 (5-15); BUN 17 mg/dL (7-18); BUN/Creat Ratio 20.1 RATIO (10-20); Calcium,Total 8.6 mg/dL (8.5-10.1); Chloride 104 mmol/L (98-107); Creatinine, Serum 0.84 mg/dL (0.55-1.02); EST Glomerular Filtration Rate 69 mL/min (>60); Est Glom Filt Rate - Afr Amer 83 mL/min (>60); Estimated Creatinine Clearance 44.19 ml/min; Glucose 99 mg/dL (74-106); Potassium 4.1 mmol/L (3.5-5.1); Sodium Level 137 mmol/L (136-145)
[2017-05-30] MEDS: Enoxaparin 40 MG/0.4 ML Syringe SC (06:34)
[2017-05-30 06:51] LABS: Bedside Glucose 107 mg/dL (70-110)
[2017-05-30] MEDS: Calcium (Elemental) 500 MG Tablet 1000 MG PO (08:33)
[2017-05-30] MEDS: Aspirin 81 MG TAB.CHEW PO (08:34)
[2017-05-30] MEDS: Glucerna Shake 120 ML LIQUID PO ×2 (09:58→13:52)
[2017-05-30] MEDS: Losartan Potassium 100 MG Tablet PO (09:59)
[2017-05-30] MEDS: HYDROCHLOROTHIAZIDE 12.5 MG CAPSULE PO (09:59)
[2017-05-30] MEDS: Tamoxifen 10 MG Tablet 20 MG PO (10:00)
[2017-05-30 11:30] LABS: Bedside Glucose 138 mg/dL (70-110)
[2017-05-30] MEDS: Magnesium Hydroxide 30 ML UDC PO (13:47)
--- NOTE | 2017-05-30 14:59 | CASEMGMT ---
TIM noted that patient is now walking 400'. TIM spoke with patient and let her know that it is possible that insurance could deny SNF due to her walking 400'. TIM told her just wanted her to be aware that this could happen. TIM then called patient's daughter, Chloé, and let her know the same. She said there will not be anyone to help patient at home. TIM told her that is why TIM is calling her now to make her aware this could happen. Await insurance authorization for TCU. Radha ZIMMERMAN MSW
[2017-05-30 16:40] LABS: Bedside Glucose 107 mg/dL (70-110)
--- NOTE | 2017-05-30 17:18 | PCM.TXEXTCAR ---
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 Current Visit: Yes (2) Mental status change Status: Acute Comment: cause unknown Current Visit: Yes (3) Hypertension Status: Chronic Current Visit: No (4) Diabetes mellitus type 2 in nonobese Status: Chronic Current Visit: No (5) Hyperlipidemia Status: Chronic Current Visit: No - Allergies/Procedures Done in Hospital Allergies/Adverse Reactions: Allergies Penicillins Allergy (Verified 05/27/17 09:37) Hives Sulfa (Sulfonamide Antibiotics) Allergy (Verified 05/27/17 09:37) Hives tramadol Adverse Reaction (Verified 05/27/17 09:37) Upset Stomach AND HEADACHE Procedures: 2-D Echocardiogram, - - carotid duplex - Type of Care/Length of Stay Estimated LOS: Convalescent Care Less Than 30 days Type of Care Needed: Skilled Rehab Potential: Good Prognosis: Good - Additional Orders/Day of Discharge H&P will serve as current which was dated: 05/27/17 Day of Discharge: 05/30/17 - Dietary and Speech Recommendations Dietitian Recommendations/Changes: Suggest continue Glucerna Shake 120 mL 4x/day on medpass. - Follow Up Care Primary Care Physician: Roxann Simmons MD [Primary Care Provider] -
--- NOTE | 2017-05-30 17:28 | TREXTCAR_ITS ---
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 Current Visit: Yes (2) Mental status change Status: Acute Comment: cause unknown Current Visit: Yes (3) Hypertension Status: Chronic Current Visit: No (4) Diabetes mellitus type 2 in nonobese Status: Chronic Current Visit: No (5) Hyperlipidemia Status: Chronic Current Visit: No - Allergies/Procedures Done in Hospital Allergies/Adverse Reactions: Allergies Penicillins Allergy (Verified 05/27/17 09:37) Hives Sulfa (Sulfonamide Antibiotics) Allergy (Verified 05/27/17 09:37) Hives tramadol Adverse Reaction (Verified 05/27/17 09:37) Upset Stomach AND HEADACHE Procedures: 2-D Echocardiogram, - - carotid duplex - Type of Care/Length of Stay Estimated LOS: Convalescent Care Less Than 30 days Type of Care Needed: Skilled Rehab Potential: Good Prognosis: Good - Additional Orders/Day of Discharge H&P will serve as current which was dated: 05/27/17 Day of Discharge: 05/30/17 - Dietary and Speech Recommendations Dietitian Recommendations/Changes: Suggest continue Glucerna Shake 120 mL 4x/ day on medpass. - Follow Up Care Primary Care Physician: Roxann Simmons MD [Primary Care Provider] -
--- NOTE | 2017-05-31 19:11 | PCM.DC.SUM ---
Discharge Date and Diagnosis Date of Admission: 05/27/17 Date of Discharge: 05/30/17 - Primary Discharge Diagnosis #1 transient mental status change-etiology unknown #2 degenerative joint disease lumbar spine #3 type 2 diabetes #4 hypertension #5 hyperlipidemia #6 generalized debility - Secondary Discharge Diagnosis Chronic Problems Breast cancer (Chronic) Degenerative joint disease (DJD) of lumbar spine (Chronic) Hypertension (Chronic) Diabetes mellitus type 2 in nonobese (Chronic) Hyperlipidemia (Chronic) Depression (Chronic) Hospital Course and Treatment Operations: None Procedures: None Summary of Care Provided: The patient is a 81 year old F was seen in the emergency room at [facility] after being brought in at the request of her son from her home due to her mental status appearing to be different than usual with the patient being very lethargic and hard to arouse. By the time the patient got to the emergency room however, patient was able to answer questions and complained of generalized pain especially in her lower back. Workup in the emergency room including CT of the brain, labs, EKG, and chest x-ray showed nothing acute that would explain the patient's transient mental status change. Patient was placed in observation status on PCU, she was seen by physical therapy and felt appropriate for temporary placement in a halfway facility due to debility. X-rays of her lower back showed degenerative joint disease of her lumbar spine. On 05/30/17, patient was seen and examined felt to be in stable condition for discharge to a local extended care facility. Home Medications: Medications to take at Discharge Hydrochlorothiazide [Hctz] 12.5 mg PO DAILY 12/19/13 Losartan Potassium [Cozaar] 100 mg PO DAILY 12/19/13 Metformin HCl [Glucophage] 500 mg PO BIDCM 12/19/13 Calcium (Elemental) [Os-Florentin 500] 1,000 mg PO DAILY@0800 07/15/15 Cholecalciferol (Vitamin D3) [Vitamin D3] 5,000 unit PO DAILY 07/15/15 Simvastatin [Zocor] 20 mg PO QHS 07/15/15 Tamoxifen Citrate [Nolvadex] 20 mg PO DAILY 07/15/15 Acetaminophen [Tylenol Extra Strength] 500 - 1,000 mg PO Q6H PRN PRN #1 tablet 05/30/17 Aspirin [Aspirin, Baby] 81 mg PO DAILY@0800 03/28/18 Glucerna Shake 120 ml PO 4X/DAY 05/30/17 Naproxen [Naprosyn] 250 mg PO BID PRN PRN tablet 05/30/17 Following Prescrptions Were Given to Patient: Acetaminophen [Tylenol Extra Strength] 500 - 1,000 mg PO Q6H PRN PRN #1 tablet PRN Reason: Pain Primary Care Physician: Roxann Simmons MD [Primary Care Provider] - Disposition: [facility] Minutes spent on discharge:: 25 Patient Condition:: Stable Medical Necessity - Tobacco Use Smoking Status: Never smoker Meaningful Use Info Meaningful Use Diagnoses (Choose all that apply): None applicable Code Visit OBSV E&M: 44960 Observation care discharge
--- NOTE | 2017-05-31 19:17 | DS.PCM_ITS ---
Discharge Date and Diagnosis Date of Admission: 05/27/17 Date of Discharge: 05/30/17 - Primary Discharge Diagnosis #1 transient mental status change-etiology unknown #2 degenerative joint disease lumbar spine #3 type 2 diabetes #4 hypertension #5 hyperlipidemia #6 generalized debility - Secondary Discharge Diagnosis Chronic Problems Breast cancer (Chronic) Degenerative joint disease (DJD) of lumbar spine (Chronic) Hypertension (Chronic) Diabetes mellitus type 2 in nonobese (Chronic) Hyperlipidemia (Chronic) Depression (Chronic) Hospital Course and Treatment Operations: None Procedures: None Summary of Care Provided: The patient is a 81 year old F was seen in the emergency room at [facility] after being brought in at the request of her son from her home due to her mental status appearing to be different than usual with the patient being very lethargic and hard to arouse. By the time the patient got to the emergency room however, patient was able to answer questions and complained of generalized pain especially in her lower back. Workup in the emergency room including CT of the brain, labs, EKG, and chest x-ray showed nothing acute that would explain the patient's transient mental status change. Patient was placed in observation status on PCU, she was seen by physical therapy and felt appropriate for temporary placement in a senior living facility due to debility. X-rays of her lower back showed degenerative joint disease of her lumbar spine. On 05/30/17, patient was seen and examined felt to be in stable condition for discharge to a local extended care facility. Home Medications: Medications to take at Discharge Hydrochlorothiazide [Hctz] 12.5 mg PO DAILY 12/19/13 Losartan Potassium [Cozaar] 100 mg PO DAILY 12/19/13 Metformin HCl [Glucophage] 500 mg PO BIDCM 12/19/13 Calcium (Elemental) [Os-Florentin 500] 1,000 mg PO DAILY@0800 07/15/15 Cholecalciferol (Vitamin D3) [Vitamin D3] 5,000 unit PO DAILY 07/15/15 Simvastatin [Zocor] 20 mg PO QHS 07/15/15 Tamoxifen Citrate [Nolvadex] 20 mg PO DAILY 07/15/15 Acetaminophen [Tylenol Extra Strength] 500 - 1,000 mg PO Q6H PRN PRN #1 tablet 05/30/17 Aspirin [Aspirin, Baby] 81 mg PO DAILY@0800 03/28/18 Glucerna Shake 120 ml PO 4X/DAY 05/30/17 Naproxen [Naprosyn] 250 mg PO BID PRN PRN tablet 05/30/17 Following Prescrptions Were Given to Patient: Acetaminophen [Tylenol Extra Strength] 500 - 1,000 mg PO Q6H PRN PRN #1 tablet PRN Reason: Pain Primary Care Physician: Roxann Simmons MD [Primary Care Provider] - Disposition: Halfway facility Minutes spent on discharge:: 25 Patient Condition:: Stable Medical Necessity - Tobacco Use Smoking Status: Never smoker Meaningful Use Info Meaningful Use Diagnoses (Choose all that apply): None applicable Code Visit OBSV E&M: 21777 Observation care discharge
== END 2017-05-30 18:22 | disposition skilled nursing facility (03) ==
LOC: ED 12:06 → PCU 12:13
PROVIDERS: Admitting Provider Internal Medicine; Emergency Provider Emergency Medicine; Family Provider Internal Medicine; PCP Internal Medicine; Visit Provider Internal Medicine
DX: R41.82 Altered mental status, unspecified (principal); M47.896 Other spondylosis, lumbar region; E11.9 Type 2 diabetes mellitus without complications; E78.5 Hyperlipidemia, unspecified; Z85.3 Personal history of malignant neoplasm of breast; I15.9 Secondary hypertension, unspecified; Z79.84 Long term (current) use of oral hypoglycemic drugs; Z79.899 Other long term (current) drug therapy; R53.81 Other malaise; I08.3 Combined rheumatic disorders of mitral, aortic and tricuspid valves; R94.31 Abnormal electrocardiogram [ECG] [EKG]; I44.4 Left anterior fascicular block; I65.23 Occlusion and stenosis of bilateral carotid arteries; R42 Dizziness and giddiness
CPT/HCPCS: 36415; 51702; 70450; 70551; 71045; 72100; 74174; 74176; 80048; 80053; 80061; 81001; 82962; 84484; 85025; 87040; 93005; 93306; 93880; 96361; 96372; 96374; 96375; 97110; 97116; 97162; 97166; 97530; 97802; 99218; 99285; J7030; Q9967; A4216; G0378; G8978; G8979; G8987; G8988; J2405

== ENCOUNTER 2017-05-30 18:25 | Inpatient (IN) | payer MEDICARE, SELFPAY ==
[2017-05-30 19:25] VITALS: BP 140/63; PULSE 80; RESP 98; TEMP 36.8; O2SAT 20
--- NOTE | 2017-05-30 19:58 | NURSING ---
Code status discussed with pt and family. Pt wishes to be a DNRCC.
[2017-05-30 20:07] VITALS: BMI 29.9
[2017-05-30 20:21] VITALS: PULSE 75; RESP 18; O2SAT 99
[2017-05-30 20:23] VITALS: BMI 29.9
--- NOTE | 2017-05-30 20:31 | PCM.HP.STD ---
Problem List (1) Breast cancer Status: Chronic (2) Degenerative joint disease (DJD) of lumbar spine Status: Chronic (3) Mental status change Status: Acute Comment: cause unknown (4) Hypertension Status: Chronic (5) Diabetes mellitus type 2 in nonobese Status: Chronic (6) Hyperlipidemia Status: Chronic (7) Depression Status: Chronic History of Present Illness Date of Admission: 05/30/17 Chief Complaint: Here for rehabilitation, strengthening, prior to discharge home alone. The patient is a 81 year old Female with below past medical history presented to [facility] Emergency Department 05/27/2017 with acute change in mental status. 05/27/2017 CT brain chronic involutional changes of brain. 05/27/2017 EKG sinus rhythm with occasional premature ventricular contractions, left anterior fascicular block, nonspecific ST abnormality. 05/27/2017 Chest X-ray COPD, borderline cardiomegaly. 05/27/2017 CT abdomen/pelvis showed no acute findings, diverticulosis, severe aortoiliac atherosclerosis. Found in bed, unresponsive. Gallstone, possible kidney mass on recent ultrasound. Dizziness, pain all over. CBCD okay, BMP okay, LFT's okay, Troponin negative. UA normal. Morphine, Zofran given. 05/27/2017 Admit to Hospital. Change in mental status resolved, associated with dizziness. 05/27/2017 Carotid duplex bilateral mild stenosis < 50%. 05/27/2017 CTA abdomen/pelvis showed coronary artery disease, no aneurysm, no significant arterial stenosis. 05/28/2017 MRI brain mild atrophy, mild sinusitis. 05/28/2017 Echo Normal LV size. Left ventricular systolic function normal. EF 60%. Left atrium mildly enlarged. Stage 1 diastolic dysfunction. 05/28/2017 X-ray lumbar spine degenerative changes. Etiology of mental status change unknown. 05/30/2017 Admit to TCU for rehabilitation, strengthening, prior to discharge home alone. Past Medical History Past Medical History (Chronic Problems): Chronic Problems Breast cancer (Chronic) Degenerative joint disease (DJD) of lumbar spine (Chronic) Hypertension (Chronic) Diabetes mellitus type 2 in nonobese (Chronic) Hyperlipidemia (Chronic) Depression (Chronic) Allergies Penicillins Allergy (Verified 05/27/17 09:37) Hives Sulfa (Sulfonamide Antibiotics) Allergy (Verified 05/27/17 09:37) Hives tramadol Adverse Reaction (Verified 05/27/17 09:37) Upset Stomach AND HEADACHE Home Medications: Ambulatory Orders Medication Instructions Recorded Hydrochlorothiazide [Hctz] 12.5 mg PO DAILY 12/19/13 Losartan Potassium [Cozaar] 100 mg PO DAILY 12/19/13 Metformin HCl [Glucophage] 500 mg PO BIDCM 12/19/13 Calcium (Elemental) [Os-Florentin 500] 1,000 mg PO DAILY@0800 07/15/15 Cholecalciferol (Vitamin D3) 5,000 unit PO DAILY 07/15/15 [Vitamin D3] Simvastatin [Zocor] 20 mg PO QHS 07/15/15 Tamoxifen Citrate [Nolvadex] 20 mg PO DAILY 07/15/15 Acetaminophen [Tylenol Extra 500 - 1,000 mg PO Q6H PRN PRN #1 05/30/17 Strength] tablet Aspirin [Aspirin, Baby] 81 mg PO DAILY@0800 05/30/17 Glucerna Shake 120 ml PO 4X/DAY 05/30/17 Naproxen [Naprosyn] 250 mg PO BID PRN PRN tablet 05/30/17 Surgical History: mastectomy - Left., - Psychiatric History: Depression 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 Lives: Alone Smoking Status: Never smoker Tobacco Use: Non-smoker Alcohol: None Drugs: None - *Family History Maternal History Items: No pertinent history Paternal History Items: No pertinent history Review of Systems Constitutional: Denies: Chills, Fever, Weight Change HEENT: Denies: Head Aches, Sinus Congestion, Sinus Drainage Cardiovascular: Denies: Chest Pain, Palpitations Respiratory: Denies: Cough, Shortness of breath at rest, Sputum production Gastrointestinal: Denies: Abdominal Pain, Nausea, Vomiting Genitourinary: Denies: Dysuria Musculoskeletal: Denies: Joint Pain, Joint Tenderness Skin: Denies: Rash, Wounds Neurological: Denies: Numbness, Tingling, Focal weakness Psychiatric: Denies: Anxiety, Depression, Homicidal Ideations, Suicidal Ideations Hematologic/ Lymphatic: Denies: Easy Bruising, Easy Bleeding VTE Information - Inpt Only VTE Present on Admission: No VTE Mechan Device Prophylaxis: Knee High MELVIN Hose VTE Pharm Prophylaxis ordered?: Yes - Physical Exam General: Alert, Oriented x3, Cooperative HEENT: Atraumatic, PERRLA, EOMI, Normocephalic Neck: Supple, No JVD, Negative Carotid Bruits Lungs: Clear to auscultation, Normal air movement Cardiovascular: Regular rate, No murmurs Abdomen: Bowel Sounds Present, Soft, Non Tender Extremities: No edema, Capillary Refill Less than 3 Seconds Skin: No rashes, No breakdown Musculoskeletal: No Tenderness to Palpation of Joints or Extremities Neurological: Cranial nerves II-XII grossly intact Psych/Mental Status: Normal Affect, Appropriate Vital Signs Temp Pulse Resp BP Pulse Ox 98.3 F 80 98 H 140/63 H 20 05/30/17 19:25 05/30/17 19:25 05/30/17 19:25 05/30/17 19:25 05/30/17 19:25 Oxygen Delivery Method Room Air Weight: 76.657 kg Body Mass Index (BMI) 29.9 Finger Stick Blood Glucose 148 Assessment/Plan 81 year old female with below past medical history hospitalized for acute change in mental status, thorough evaluation found no obvious cause, admitted to TCU with debility, here for rehabilitation, strengthening, prior to discharge home alone. Debility - PT/OT. Pain - Tylenol 1000MG Q8H PRN mild pain, Naproxen 250MG BID PRN moderate pain. Bowel - Miralax 17GM daily, Senna/colace 1 tablet BID, Dulcolax 10MG MD daily PRN. Pneumonia vaccination - Administer Prevnar 13 and/or Pneumovax 23 as necessary. DVT prophylaxis - Lovenox 30MG SC daily. CV prophylaxis - Aspirin 81MG daily. Calcium deficiency - Calcium 1000MG daily. Vitamin D deficiency - D3 5000IU daily. Nutrition - Glucerna 120ML 4x/day. Hypertension - Losartan 100MG daily, HCTZ 12.5MG daily. Diabetes Mellitus II - Metformin 500MG BID. Hyperlipidemia - Atorvastatin 20MG QHS. Breast cancer - Tamoxifen 20MG daily.
--- NOTE | 2017-05-30 20:42 | HP.PCM_ITS ---
Problem List (1) Breast cancer Status: Chronic (2) Degenerative joint disease (DJD) of lumbar spine Status: Chronic (3) Mental status change Status: Acute Comment: cause unknown (4) Hypertension Status: Chronic (5) Diabetes mellitus type 2 in nonobese Status: Chronic (6) Hyperlipidemia Status: Chronic (7) Depression Status: Chronic History of Present Illness Date of Admission: 05/30/17 Chief Complaint: Here for rehabilitation, strengthening, prior to discharge home alone. The patient is a 81 year old Female with below past medical history presented to [facility] Emergency Department 05/27/2017 with acute change in mental status. 05/27/2017 CT brain chronic involutional changes of brain. 05/27/2017 EKG sinus rhythm with occasional premature ventricular contractions, left anterior fascicular block, nonspecific ST abnormality. 05/27/2017 Chest X-ray COPD, borderline cardiomegaly. 05/27/2017 CT abdomen/pelvis showed no acute findings, diverticulosis, severe aortoiliac atherosclerosis. Found in bed, unresponsive. Gallstone, possible kidney mass on recent ultrasound. Dizziness, pain all over. CBCD okay, BMP okay, LFT's okay, Troponin negative. UA normal. Morphine, Zofran given. 05/27/2017 Admit to Hospital. Change in mental status resolved, associated with dizziness. 05/27/2017 Carotid duplex bilateral mild stenosis < 50%. 05/27/2017 CTA abdomen/pelvis showed coronary artery disease, no aneurysm, no significant arterial stenosis. 05/28/2017 MRI brain mild atrophy, mild sinusitis. 05/28/2017 Echo Normal LV size. Left ventricular systolic function normal. EF 60%. Left atrium mildly enlarged. Stage 1 diastolic dysfunction. 05/28/2017 X-ray lumbar spine degenerative changes. Etiology of mental status change unknown. 05/30/2017 Admit to TCU for rehabilitation, strengthening, prior to discharge home alone. Past Medical History Past Medical History (Chronic Problems): Chronic Problems Breast cancer (Chronic) Degenerative joint disease (DJD) of lumbar spine (Chronic) Hypertension (Chronic) Diabetes mellitus type 2 in nonobese (Chronic) Hyperlipidemia (Chronic) Depression (Chronic) Allergies Penicillins Allergy (Verified 05/27/17 09:37) Hives Sulfa (Sulfonamide Antibiotics) Allergy (Verified 05/27/17 09:37) Hives tramadol Adverse Reaction (Verified 05/27/17 09:37) Upset Stomach AND HEADACHE Home Medications: Ambulatory Orders Medication Instructions Recorded Hydrochlorothiazide [Hctz] 12.5 mg PO DAILY 12/19/13 Losartan Potassium [Cozaar] 100 mg PO DAILY 12/19/13 Metformin HCl [Glucophage] 500 mg PO BIDCM 12/19/13 Calcium (Elemental) [Os-Florentin 500] 1,000 mg PO DAILY@0800 07/15/15 Cholecalciferol (Vitamin D3) 5,000 unit PO DAILY 07/15/15 [Vitamin D3] Simvastatin [Zocor] 20 mg PO QHS 07/15/15 Tamoxifen Citrate [Nolvadex] 20 mg PO DAILY 07/15/15 Acetaminophen [Tylenol Extra 500 - 1,000 mg PO Q6H PRN PRN #1 05/30/17 Strength] tablet Aspirin [Aspirin, Baby] 81 mg PO DAILY@0800 05/30/17 Glucerna Shake 120 ml PO 4X/DAY 05/30/17 Naproxen [Naprosyn] 250 mg PO BID PRN PRN tablet 05/30/17 Surgical History: mastectomy - Left., - Psychiatric History: Depression 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 Lives: Alone Smoking Status: Never smoker Tobacco Use: Non-smoker Alcohol: None Drugs: None - *Family History Maternal History Items: No pertinent history Paternal History Items: No pertinent history Review of Systems Constitutional: Denies: Chills, Fever, Weight Change HEENT: Denies: Head Aches, Sinus Congestion, Sinus Drainage Cardiovascular: Denies: Chest Pain, Palpitations Respiratory: Denies: Cough, Shortness of breath at rest, Sputum production Gastrointestinal: Denies: Abdominal Pain, Nausea, Vomiting Genitourinary: Denies: Dysuria Musculoskeletal: Denies: Joint Pain, Joint Tenderness Skin: Denies: Rash, Wounds Neurological: Denies: Numbness, Tingling, Focal weakness Psychiatric: Denies: Anxiety, Depression, Homicidal Ideations, Suicidal Ideations Hematologic/ Lymphatic: Denies: Easy Bruising, Easy Bleeding VTE Information - Inpt Only VTE Present on Admission: No VTE Mechan Device Prophylaxis: Knee High MELVIN Hose VTE Pharm Prophylaxis ordered?: Yes - Physical Exam General: Alert, Oriented x3, Cooperative HEENT: Atraumatic, PERRLA, EOMI, Normocephalic Neck: Supple, No JVD, Negative Carotid Bruits Lungs: Clear to auscultation, Normal air movement Cardiovascular: Regular rate, No murmurs Abdomen: Bowel Sounds Present, Soft, Non Tender Extremities: No edema, Capillary Refill Less than 3 Seconds Skin: No rashes, No breakdown Musculoskeletal: No Tenderness to Palpation of Joints or Extremities Neurological: Cranial nerves II-XII grossly intact Psych/Mental Status: Normal Affect, Appropriate Vital Signs Temp Pulse Resp BP Pulse Ox 98.3 F 80 98 H 140/63 H 20 05/30/17 19:25 05/30/17 19:25 05/30/17 19:25 05/30/17 19:25 05/30/17 19:25 Oxygen Delivery Method Room Air Weight: 76.657 kg Body Mass Index (BMI) 29.9 Finger Stick Blood Glucose 148 Assessment/Plan 81 year old female with below past medical history hospitalized for acute change in mental status, thorough evaluation found no obvious cause, admitted to TCU with debility, here for rehabilitation, strengthening, prior to discharge home alone. * Debility - PT/OT. * Pain - Tylenol 1000MG Q8H PRN mild pain, Naproxen 250MG BID PRN moderate pain. * Bowel - Miralax 17GM daily, Senna/colace 1 tablet BID, Dulcolax 10MG MN daily PRN. * Pneumonia vaccination - Administer Prevnar 13 and/or Pneumovax 23 as necessary. * DVT prophylaxis - Lovenox 30MG SC daily. * CV prophylaxis - Aspirin 81MG daily. * Calcium deficiency - Calcium 1000MG daily. * Vitamin D deficiency - D3 5000IU daily. * Nutrition - Glucerna 120ML 4x/day. * Hypertension - Losartan 100MG daily, HCTZ 12.5MG daily. * Diabetes Mellitus II - Metformin 500MG BID. * Hyperlipidemia - Atorvastatin 20MG QHS. * Breast cancer - Tamoxifen 20MG daily.
[2017-05-30] MEDS: Glucerna Shake 120 ML LIQUID PO (21:54)
[2017-05-30] MEDS: Atorvastatin Calcium 10 MG Tablet PO (22:12)
[2017-05-31] MEDS: Senna/Docusate Sodium 1 Tablet PO (05:50)
[2017-05-31] MEDS: Enoxaparin 30 MG/0.3 ML Syringe SC (05:50)
[2017-05-31] MEDS: HYDROCHLOROTHIAZIDE 12.5 MG CAPSULE PO (05:50)
[2017-05-31] MEDS: Tamoxifen 10 MG Tablet 20 MG PO (05:50)
[2017-05-31] MEDS: Losartan Potassium 100 MG Tablet PO (05:50)
[2017-05-31] MEDS: Glucerna Shake 120 ML LIQUID PO ×4 (05:50→21:40)
[2017-05-31 05:55] LABS: Absolute Lymphocyte Count 1.41 X10^3/ul (0.83-4.51); Absolute Neutrophil Count 2.7 X10^3/uL (2.0-7.7); Basophil# 0.01 X10^3/uL; Basophil% 0.2 % (0-1); Eosinophil# 0.08 X10^3/uL; Eosinophils% 1.6 % (0-5); Hematocrit 38.4 % (37-47); Hemoglobin 12.6 g/dl (12.0-15.0); Lymphocyte # 1.41 X10^3/ul (4.0); Lymphocyte % 29.1 % (19-41); Mean Corp Hgb Conc 32.8 g/gl (32-36); Mean Corpuscular Hgb 29.9 pg (27.0-32.0); Mean Corpuscular Volume 91.2 fL (81-99); Mean Platelet Vol. 9.8 fl (6.2-12.0); Monocyte% 12.4 % (0-10); Neutrophil # 2.74 X10^3/uL (2.7-7.7); Neutrophil % 56.5 % (47-70); Platelet Count 230 K/mm3 (150-450); RBC Distribution Width CV 12.7 % (11.6-14.6); RBC Distribution Width SD 41.9 fl (35.1-43.9); Red Blood Count 4.21 M/mm3 (4.2-5.4); White Blood Count 4.9 K/mm3 (4.4-11.0)
[2017-05-31] MEDS: Nystatin Powder 15gm Bottle 1 APPLIC TOPICAL ×2 (05:55→21:40)
[2017-05-31 06:07] LABS: POSITIVE COUNT NO; POSITIVE DIFFERENTIAL NO; POSITIVE MORPHOLOGY NO
[2017-05-31 06:24] LABS: Anion Gap 5 (5-15); BUN 15 mg/dL (7-18); BUN/Creat Ratio 17.8 RATIO (10-20); Calcium,Total 8.7 mg/dL (8.5-10.1); Chloride 101 mmol/L (98-107); Creatinine, Serum 0.84 mg/dL (0.55-1.02); EST Glomerular Filtration Rate 69 mL/min (>60); Est Glom Filt Rate - Afr Amer 84 mL/min (>60); Estimated Creatinine Clearance 42.25 ml/min; Glucose 103 mg/dL (74-106); Potassium 4.2 mmol/L (3.5-5.1); Sodium Level 136 mmol/L (136-145)
[2017-05-31 07:01] LABS: Bedside Glucose 145 mg/dL (70-110)
[2017-05-31] MEDS: Aspirin 81 MG TAB.CHEW PO (08:30)
[2017-05-31] MEDS: Calcium (Elemental) 500 MG Tablet 1000 MG PO (08:30)
[2017-05-31] MEDS: Tuberculin,Purif.prot.deriv. 50 TU/ML Vial 5 ML ID (11:11)
--- NOTE | 2017-05-31 12:10 | CASEMGMT ---
Social Work Resident daughter, Stephanie and Son, Ced are main contacts. Ced lives local while Stephanie lives out of town. Danielle CASTELLON, BILINGUAL CASE MANAGER
--- NOTE | 2017-05-31 13:42 | PCM.PN.RX ---
<TerryCharles mendoza D - Last Filed: 05/31/17 13:42> Progress Note - Pharmacy Subjective: TCU Admission Objective: Allergies Penicillins Allergy (Verified 05/27/17 09:37) Hives Sulfa (Sulfonamide Antibiotics) Allergy (Verified 05/27/17 09:37) Hives tramadol Adverse Reaction (Verified 05/27/17 09:37) Upset Stomach AND HEADACHE Home Medications Medication Instructions Recorded Hydrochlorothiazide [Hctz] 12.5 mg PO DAILY 12/19/13 Losartan Potassium [Cozaar] 100 mg PO DAILY 12/19/13 Metformin HCl [Glucophage] 500 mg PO BIDCM 12/19/13 Calcium (Elemental) [Os-Florentin 500] 1,000 mg PO DAILY@0800 07/15/15 Cholecalciferol (Vitamin D3) 5,000 unit PO DAILY 07/15/15 [Vitamin D3] Simvastatin [Zocor] 20 mg PO QHS 07/15/15 Tamoxifen Citrate [Nolvadex] 20 mg PO DAILY 07/15/15 Acetaminophen [Tylenol Extra 500 - 1,000 mg PO Q6H PRN PRN #1 05/30/17 Strength] tablet Aspirin [Aspirin, Baby] 81 mg PO DAILY@0800 05/30/17 Glucerna Shake 120 ml PO 4X/DAY 05/30/17 Naproxen [Naprosyn] 250 mg PO BID PRN PRN tablet 05/30/17 Current Medications Generic Name Dose Route Start Last Admin Trade Name Freq PRN Reason Stop Dose Admin Acetaminophen 1,000 mg 05/30/17 20:48 Tylenol PO Q8H PRN PRN MILD PAIN (1-3/10) Aspirin 81 mg 05/31/17 08:00 05/31/17 08:30 Aspirin, Baby PO 81 mg DAILY@0800 MIREYA Administration Atorvastatin Calcium 10 mg 05/30/17 22:00 05/30/17 22:12 Lipitor PO 10 mg QHS MIREYA Administration Bisacodyl 10 mg 05/30/17 20:47 Dulcolax RECTAL DAILY PRN Constipation Calcium Carbonate 1,000 mg 05/31/17 08:00 05/31/17 08:30 Os-Florentin 500 PO 1,000 mg DAILY@0800 MIREYA Administration Cholecalciferol 5,000 unit 05/31/17 06:00 05/31/17 05:50 Vitamin D PO 5,000 unit DAILY MIREYA Administration Enoxaparin Sodium 30 mg 05/31/17 06:00 05/31/17 05:50 Lovenox SC 30 mg DAILY@0600 MIREYA Administration Hydrochlorothiazide 12.5 mg 05/31/17 06:00 05/31/17 05:50 Hydrochlorothiazide PO 12.5 mg DAILY MIREYA Administration Losartan Potassium 100 mg 05/31/17 06:00 05/31/17 05:50 Cozaar PO 100 mg DAILY MIREYA Administration Metformin HCl 500 mg 05/31/17 08:00 05/31/17 08:30 Glucophage PO 500 mg BIDCM MIREYA Administration Naproxen 250 mg 05/30/17 20:48 Naprosyn PO BID PRN PRN MODERATE PAIN (4-5/10) Nutritional Formula (Lactose Free) 120 ml 05/30/17 22:00 05/31/17 11:11 Glucerna Shake PO 120 ml 4X/DAY MIREYA Administration Nystatin 1 applic 05/31/17 06:00 05/31/17 05:55 Mycostatin Powder TOPICAL 1 applicatio 0600,2200 [facility] Administration Protocol Polyethylene Glycol 17 gm 05/31/17 06:00 05/31/17 05:53 Miralax PO Not Given DAILY [facility] Senna/Docusate Sodium 1 tablet 05/31/17 06:00 05/31/17 05:50 Senokot-S, Starr-Colace PO 1 tablet BID MIREYA Administration Tamoxifen Citrate 20 mg 05/31/17 06:00 05/31/17 05:50 Nolvadex PO 20 mg DAILY MIREYA Administration Tuberculin PPD 5 tu 06/07/17 10:00 Tubersol, Aplisol, Ppd ID 06/07/17 10:01 X1 ONE Vital Signs Temp Pulse Resp BP Pulse Ox 98.3 F 75 18 140/63 H 99 05/30/17 19:25 05/30/17 20:21 05/30/17 20:21 05/30/17 19:25 05/30/17 20:21 Oxygen Delivery Method Room Air Weight: 76.657 kg Body Mass Index (BMI) 29.9 Finger Stick Blood Glucose 148 Sodium 136 mmol/L (136-145) 05/31/17 05:00 Potassium 4.2 mmol/L (3.5-5.1) 05/31/17 05:00 Chloride 101 mmol/L (98-107) 05/31/17 05:00 Carbon Dioxide 30.0 mmol/L (21.0-32.0) 05/31/17 05:00 Anion Gap 5 (5-15) 05/31/17 05:00 BUN 15 mg/dL (7-18) 05/31/17 05:00 Creatinine 0.84 mg/dL (0.55-1.02) 05/31/17 05:00 Est GFR (MDRD) Af Amer 84 mL/min (>60) 05/31/17 05:00 Est GFR (MDRD) Non-Af 69 mL/min (>60) 05/31/17 05:00 BUN/Creatinine Ratio 17.8 RATIO (10-20) 05/31/17 05:00 Glucose 103 mg/dL (74-106) 05/31/17 05:00 Assessment/Plan: 1) Pain APAP for mild pain, naproxen for moderate pain. Continue to monitor prn medication use, daily pain scores. 2) HTN Losartan, HCTZ. Avg BP/HR within goal ranges, K wnl, BUN/SCr at baseline. Continue to monitor BP/HR, renal function, electrolytes. 3) DM2/HLD Metformin twice daily, ASA, atorvastatin. Avg BGT < 180 mg/dL, lipids at goal, hepatic enzymes wnl. Continue to monitor lipids, hepatic enzymes, BGT, renal function. 4) Nutrition Calcium, D, Glucerna. Continue to monitor clinically. 5) Hx Breast Cancer Tamoxifen daily. Continue to monitor clinically. 6) Derm Nystatin powder topically. Continue to monitor clinically. 7) DVT PPx Enoxaparin daily. Hgb/Hct at baseline. Continue to monitor s/s bleeding/clot. Psychotropic Medications: None Unnecessary Medications: None Bowel Regimen: 8) Senna/s, PEG, prn bisacodyl. Continue to monitor prn medication use, for constipation/diarrhea. Date of Note:: 05/31/17 - Provider Comments Provider responsibility: Provider responsible to enter orders to implement recommendations <Reji Martines Chi - Last Filed: 05/31/17 17:09> Progress Note - Pharmacy Subjective: [] Objective: Allergies Penicillins Allergy (Verified 05/27/17 09:37) Hives Sulfa (Sulfonamide Antibiotics) Allergy (Verified 05/27/17 09:37) Hives tramadol Adverse Reaction (Verified 05/27/17 09:37) Upset Stomach AND HEADACHE Home Medications Medication Instructions Recorded Hydrochlorothiazide [Hctz] 12.5 mg PO DAILY 12/19/13 Losartan Potassium [Cozaar] 100 mg PO DAILY 12/19/13 Metformin HCl [Glucophage] 500 mg PO BIDCM 12/19/13 Calcium (Elemental) [Os-Florentin 500] 1,000 mg PO DAILY@0800 07/15/15 Cholecalciferol (Vitamin D3) 5,000 unit PO DAILY 07/15/15 [Vitamin D3] Simvastatin [Zocor] 20 mg PO QHS 07/15/15 Tamoxifen Citrate [Nolvadex] 20 mg PO DAILY 07/15/15 Acetaminophen [Tylenol Extra 500 - 1,000 mg PO Q6H PRN PRN #1 05/30/17 Strength] tablet Aspirin [Aspirin, Baby] 81 mg PO DAILY@0800 05/30/17 Glucerna Shake 120 ml PO 4X/DAY 05/30/17 Naproxen [Naprosyn] 250 mg PO BID PRN PRN tablet 05/30/17 Current Medications Generic Name Dose Route Start Last Admin Trade Name Freq PRN Reason Stop Dose Admin Acetaminophen 1,000 mg 05/30/17 20:48 Tylenol PO Q8H PRN PRN MILD PAIN (1-3/10) Aspirin 81 mg 05/31/17 08:00 05/31/17 08:30 Aspirin, Baby PO 81 mg DAILY@0800 MIREYA Administration Atorvastatin Calcium 10 mg 05/30/17 22:00 05/30/17 22:12 Lipitor PO 10 mg QHS MIREYA Administration Bisacodyl 10 mg 05/30/17 20:47 Dulcolax RECTAL DAILY PRN Constipation Calcium Carbonate 1,000 mg 05/31/17 08:00 05/31/17 08:30 Os-Florentin 500 PO 1,000 mg DAILY@0800 [facility] Administration Cholecalciferol 5,000 unit 05/31/17 06:00 05/31/17 05:50 Vitamin D PO 5,000 unit DAILY MIREYA Administration Enoxaparin Sodium 30 mg 05/31/17 06:00 05/31/17 05:50 Lovenox SC 30 mg DAILY@0600 [facility] Administration Hydrochlorothiazide 12.5 mg 05/31/17 06:00 05/31/17 05:50 Hydrochlorothiazide PO 12.5 mg DAILY MRIEYA Administration Losartan Potassium 100 mg 05/31/17 06:00 05/31/17 05:50 Cozaar PO 100 mg DAILY MIREYA Administration Metformin HCl 500 mg 05/31/17 08:00 05/31/17 08:30 Glucophage PO 500 mg BIDCM MIREYA Administration Naproxen 250 mg 05/30/17 20:48 Naprosyn PO BID PRN PRN MODERATE PAIN (4-5/10) Nutritional Formula (Lactose Free) 120 ml 05/30/17 22:00 05/31/17 11:11 Glucerna Shake PO 120 ml 4X/DAY MIREYA Administration Nystatin 1 applic 05/31/17 06:00 05/31/17 05:55 Mycostatin Powder TOPICAL 1 applicatio 0600,2200 MIREYA Administration Protocol Polyethylene Glycol 17 gm 05/31/17 06:00 05/31/17 05:53 Miralax PO Not Given DAILY MIREYA Senna/Docusate Sodium 1 tablet 05/31/17 06:00 05/31/17 05:50 Senokot-S, Starr-Colace PO 1 tablet BID MIREYA Administration Tamoxifen Citrate 20 mg 05/31/17 06:00 05/31/17 05:50 Nolvadex PO 20 mg DAILY MIREYA Administration Tuberculin PPD 5 tu 06/07/17 10:00 Tubersol, Aplisol, Ppd ID 06/07/17 10:01 X1 ONE Vital Signs Temp Pulse Resp BP Pulse Ox 97.7 F L 83 16 80/41 L 94 05/31/17 15:57 05/31/17 15:57 05/31/17 15:57 05/31/17 15:57 05/31/17 15:57 Oxygen Delivery Method Room Air Weight: 76.657 kg Body Mass Index (BMI) 29.9 Finger Stick Blood Glucose 148 Sodium 136 mmol/L (136-145) 05/31/17 05:00 Potassium 4.2 mmol/L (3.5-5.1) 05/31/17 05:00 Chloride 101 mmol/L (98-107) 05/31/17 05:00 Carbon Dioxide 30.0 mmol/L (21.0-32.0) 05/31/17 05:00 Anion Gap 5 (5-15) 05/31/17 05:00 BUN 15 mg/dL (7-18) 05/31/17 05:00 Creatinine 0.84 mg/dL (0.55-1.02) 05/31/17 05:00 Est GFR (MDRD) Af Amer 84 mL/min (>60) 05/31/17 05:00 Est GFR (MDRD) Non-Af 69 mL/min (>60) 05/31/17 05:00 BUN/Creatinine Ratio 17.8 RATIO (10-20) 05/31/17 05:00 Glucose 103 mg/dL (74-106) 05/31/17 05:00 Assessment/Plan: Psychotropic Medications: Unnecessary Medications: Bowel Regimen: - Provider Comments Provider responsibility: Provider responsible to enter orders to implement recommendations Provider Comments to Recommendations by Pharmacy: Agree
--- NOTE | 2017-05-31 13:49 | PHA.CONS_ITS ---
<TerryCharles mendoza D - Last Filed: 05/31/17 13:42> Progress Note - Pharmacy Subjective: TCU Admission Objective: Allergies Penicillins Allergy (Verified 05/27/17 09:37) Hives Sulfa (Sulfonamide Antibiotics) Allergy (Verified 05/27/17 09:37) Hives tramadol Adverse Reaction (Verified 05/27/17 09:37) Upset Stomach AND HEADACHE Home Medications Medication Instructions Recorded Hydrochlorothiazide [Hctz] 12.5 mg PO DAILY 12/19/13 Losartan Potassium [Cozaar] 100 mg PO DAILY 12/19/13 Metformin HCl [Glucophage] 500 mg PO BIDCM 12/19/13 Calcium (Elemental) [Os-Florentin 500] 1,000 mg PO DAILY@0800 07/15/15 Cholecalciferol (Vitamin D3) 5,000 unit PO DAILY 07/15/15 [Vitamin D3] Simvastatin [Zocor] 20 mg PO QHS 07/15/15 Tamoxifen Citrate [Nolvadex] 20 mg PO DAILY 07/15/15 Acetaminophen [Tylenol Extra 500 - 1,000 mg PO Q6H PRN PRN #1 05/30/17 Strength] tablet Aspirin [Aspirin, Baby] 81 mg PO DAILY@0800 05/30/17 Glucerna Shake 120 ml PO 4X/DAY 05/30/17 Naproxen [Naprosyn] 250 mg PO BID PRN PRN tablet 05/30/17 Current Medications Generic Name Dose Route Start Last Admin Trade Name Freq PRN Reason Stop Dose Admin Acetaminophen 1,000 mg 05/30/17 20:48 Tylenol PO Q8H PRN PRN MILD PAIN (1-3/10) Aspirin 81 mg 05/31/17 08:00 05/31/17 08:30 Aspirin, Baby PO 81 mg DAILY@0800 MIREYA Administration Atorvastatin Calcium 10 mg 05/30/17 22:00 05/30/17 22:12 Lipitor PO 10 mg QHS MIREYA Administration Bisacodyl 10 mg 05/30/17 20:47 Dulcolax RECTAL DAILY PRN Constipation Calcium Carbonate 1,000 mg 05/31/17 08:00 05/31/17 08:30 Os-Florentin 500 PO 1,000 mg DAILY@0800 MIREYA Administration Cholecalciferol 5,000 unit 05/31/17 06:00 05/31/17 05:50 Vitamin D PO 5,000 unit DAILY MIREYA Administration Enoxaparin Sodium 30 mg 05/31/17 06:00 05/31/17 05:50 Lovenox SC 30 mg DAILY@0600 MIREYA Administration Hydrochlorothiazide 12.5 mg 05/31/17 06:00 05/31/17 05:50 Hydrochlorothiazide PO 12.5 mg DAILY MIREYA Administration Losartan Potassium 100 mg 05/31/17 06:00 05/31/17 05:50 Cozaar PO 100 mg DAILY MIREYA Administration Metformin HCl 500 mg 05/31/17 08:00 05/31/17 08:30 Glucophage PO 500 mg BIDCM MIREYA Administration Naproxen 250 mg 05/30/17 20:48 Naprosyn PO BID PRN PRN MODERATE PAIN (4-5/10) Nutritional Formula (Lactose Free) 120 ml 05/30/17 22:00 05/31/17 11:11 Glucerna Shake PO 120 ml 4X/DAY MIREYA Administration Nystatin 1 applic 05/31/17 06:00 05/31/17 05:55 Mycostatin Powder TOPICAL 1 applicatio 0600,2200 [facility] Administration Protocol Polyethylene Glycol 17 gm 05/31/17 06:00 05/31/17 05:53 Miralax PO Not Given DAILY [facility] Senna/Docusate Sodium 1 tablet 05/31/17 06:00 05/31/17 05:50 Senokot-S, Starr-Colace PO 1 tablet BID MIREYA Administration Tamoxifen Citrate 20 mg 05/31/17 06:00 05/31/17 05:50 Nolvadex PO 20 mg DAILY MIREYA Administration Tuberculin PPD 5 tu 06/07/17 10:00 Tubersol, Aplisol, Ppd ID 06/07/17 10:01 X1 ONE Vital Signs Temp Pulse Resp BP Pulse Ox 98.3 F 75 18 140/63 H 99 05/30/17 19:25 05/30/17 20:21 05/30/17 20:21 05/30/17 19:25 05/30/17 20:21 Oxygen Delivery Method Room Air Weight: 76.657 kg Body Mass Index (BMI) 29.9 Finger Stick Blood Glucose 148 Sodium 136 mmol/L (136-145) 05/31/17 05:00 Potassium 4.2 mmol/L (3.5-5.1) 05/31/17 05:00 Chloride 101 mmol/L (98-107) 05/31/17 05:00 Carbon Dioxide 30.0 mmol/L (21.0-32.0) 05/31/17 05:00 Anion Gap 5 (5-15) 05/31/17 05:00 BUN 15 mg/dL (7-18) 05/31/17 05:00 Creatinine 0.84 mg/dL (0.55-1.02) 05/31/17 05:00 Est GFR (MDRD) Af Amer 84 mL/min (>60) 05/31/17 05:00 Est GFR (MDRD) Non-Af 69 mL/min (>60) 05/31/17 05:00 BUN/Creatinine Ratio 17.8 RATIO (10-20) 05/31/17 05:00 Glucose 103 mg/dL (74-106) 05/31/17 05:00 Assessment/Plan: 1) Pain APAP for mild pain, naproxen for moderate pain. Continue to monitor prn medication use, daily pain scores. 2) HTN Losartan, HCTZ. Avg BP/HR within goal ranges, K wnl, BUN/SCr at baseline. Continue to monitor BP/HR, renal function, electrolytes. 3) DM2/HLD Metformin twice daily, ASA, atorvastatin. Avg BGT < 180 mg/dL, lipids at goal , hepatic enzymes wnl. Continue to monitor lipids, hepatic enzymes, BGT, renal function. 4) Nutrition Calcium, D, Glucerna. Continue to monitor clinically. 5) Hx Breast Cancer Tamoxifen daily. Continue to monitor clinically. 6) Derm Nystatin powder topically. Continue to monitor clinically. 7) DVT PPx Enoxaparin daily. Hgb/Hct at baseline. Continue to monitor s/s bleeding/clot. Psychotropic Medications: None Unnecessary Medications: None Bowel Regimen: 8) Senna/s, PEG, prn bisacodyl. Continue to monitor prn medication use, for constipation/diarrhea. Date of Note:: 05/31/17 - Provider Comments Provider responsibility: Provider responsible to enter orders to implement recommendations <Reji Martines Chi - Last Filed: 05/31/17 17:09> Progress Note - Pharmacy Subjective: [] Objective: Allergies Penicillins Allergy (Verified 05/27/17 09:37) Hives Sulfa (Sulfonamide Antibiotics) Allergy (Verified 05/27/17 09:37) Hives tramadol Adverse Reaction (Verified 05/27/17 09:37) Upset Stomach AND HEADACHE Home Medications Medication Instructions Recorded Hydrochlorothiazide [Hctz] 12.5 mg PO DAILY 12/19/13 Losartan Potassium [Cozaar] 100 mg PO DAILY 12/19/13 Metformin HCl [Glucophage] 500 mg PO BIDCM 12/19/13 Calcium (Elemental) [Os-Florentin 500] 1,000 mg PO DAILY@0800 07/15/15 Cholecalciferol (Vitamin D3) 5,000 unit PO DAILY 07/15/15 [Vitamin D3] Simvastatin [Zocor] 20 mg PO QHS 07/15/15 Tamoxifen Citrate [Nolvadex] 20 mg PO DAILY 07/15/15 Acetaminophen [Tylenol Extra 500 - 1,000 mg PO Q6H PRN PRN #1 05/30/17 Strength] tablet Aspirin [Aspirin, Baby] 81 mg PO DAILY@0800 05/30/17 Glucerna Shake 120 ml PO 4X/DAY 05/30/17 Naproxen [Naprosyn] 250 mg PO BID PRN PRN tablet 05/30/17 Current Medications Generic Name Dose Route Start Last Admin Trade Name Freq PRN Reason Stop Dose Admin Acetaminophen 1,000 mg 05/30/17 20:48 Tylenol PO Q8H PRN PRN MILD PAIN (1-3/10) Aspirin 81 mg 05/31/17 08:00 05/31/17 08:30 Aspirin, Baby PO 81 mg DAILY@0800 MIREYA Administration Atorvastatin Calcium 10 mg 05/30/17 22:00 05/30/17 22:12 Lipitor PO 10 mg QHS MIRYEA Administration Bisacodyl 10 mg 05/30/17 20:47 Dulcolax RECTAL DAILY PRN Constipation Calcium Carbonate 1,000 mg 05/31/17 08:00 05/31/17 08:30 Os-Florentin 500 PO 1,000 mg DAILY@0800 [facility] Administration Cholecalciferol 5,000 unit 05/31/17 06:00 05/31/17 05:50 Vitamin D PO 5,000 unit DAILY MIREYA Administration Enoxaparin Sodium 30 mg 05/31/17 06:00 05/31/17 05:50 Lovenox SC 30 mg DAILY@0600 [facility] Administration Hydrochlorothiazide 12.5 mg 05/31/17 06:00 05/31/17 05:50 Hydrochlorothiazide PO 12.5 mg DAILY MIREYA Administration Losartan Potassium 100 mg 05/31/17 06:00 05/31/17 05:50 Cozaar PO 100 mg DAILY MIREYA Administration Metformin HCl 500 mg 05/31/17 08:00 05/31/17 08:30 Glucophage PO 500 mg BIDCM MIREYA Administration Naproxen 250 mg 05/30/17 20:48 Naprosyn PO BID PRN PRN MODERATE PAIN (4-5/10) Nutritional Formula (Lactose Free) 120 ml 05/30/17 22:00 05/31/17 11:11 Glucerna Shake PO 120 ml 4X/DAY MIREYA Administration Nystatin 1 applic 05/31/17 06:00 05/31/17 05:55 Mycostatin Powder TOPICAL 1 applicatio 0600,2200 MIREYA Administration Protocol Polyethylene Glycol 17 gm 05/31/17 06:00 05/31/17 05:53 Miralax PO Not Given DAILY MIREYA Senna/Docusate Sodium 1 tablet 05/31/17 06:00 05/31/17 05:50 Senokot-S, Starr-Colace PO 1 tablet BID MIREYA Administration Tamoxifen Citrate 20 mg 05/31/17 06:00 05/31/17 05:50 Nolvadex PO 20 mg DAILY MIREYA Administration Tuberculin PPD 5 tu 06/07/17 10:00 Tubersol, Aplisol, Ppd ID 06/07/17 10:01 X1 ONE Vital Signs Temp Pulse Resp BP Pulse Ox 97.7 F L 83 16 80/41 L 94 05/31/17 15:57 05/31/17 15:57 05/31/17 15:57 05/31/17 15:57 05/31/17 15:57 Oxygen Delivery Method Room Air Weight: 76.657 kg Body Mass Index (BMI) 29.9 Finger Stick Blood Glucose 148 Sodium 136 mmol/L (136-145) 05/31/17 05:00 Potassium 4.2 mmol/L (3.5-5.1) 05/31/17 05:00 Chloride 101 mmol/L (98-107) 05/31/17 05:00 Carbon Dioxide 30.0 mmol/L (21.0-32.0) 05/31/17 05:00 Anion Gap 5 (5-15) 05/31/17 05:00 BUN 15 mg/dL (7-18) 05/31/17 05:00 Creatinine 0.84 mg/dL (0.55-1.02) 05/31/17 05:00 Est GFR (MDRD) Af Amer 84 mL/min (>60) 05/31/17 05:00 Est GFR (MDRD) Non-Af 69 mL/min (>60) 05/31/17 05:00 BUN/Creatinine Ratio 17.8 RATIO (10-20) 05/31/17 05:00 Glucose 103 mg/dL (74-106) 05/31/17 05:00 Assessment/Plan: Psychotropic Medications: Unnecessary Medications: Bowel Regimen: - Provider Comments Provider responsibility: Provider responsible to enter orders to implement recommendations Provider Comments to Recommendations by Pharmacy: Agree
[2017-05-31 15:57] VITALS: BP 80/41; PULSE 83; RESP 16; TEMP 36.5; O2SAT 94
[2017-05-31] MEDS: Atorvastatin Calcium 10 MG Tablet PO (21:40)
[2017-06-01] MEDS: Glucerna Shake 120 ML LIQUID PO ×4 (05:46→19:33)
[2017-06-01] MEDS: Enoxaparin 30 MG/0.3 ML Syringe SC (05:46)
[2017-06-01] MEDS: HYDROCHLOROTHIAZIDE 12.5 MG CAPSULE PO (05:47)
[2017-06-01] MEDS: Senna/Docusate Sodium 1 Tablet PO (05:47)
[2017-06-01] MEDS: Nystatin Powder 15gm Bottle 1 APPLIC TOPICAL ×2 (05:47→19:33)
[2017-06-01] MEDS: Losartan Potassium 100 MG Tablet PO (05:47)
[2017-06-01] MEDS: Tamoxifen 10 MG Tablet 20 MG PO (05:50)
[2017-06-01 06:45] LABS: Bedside Glucose 136 mg/dL (70-110)
[2017-06-01] MEDS: Acetaminophen 500 MG Tablet 1000 MG PO (08:06)
[2017-06-01] MEDS: Aspirin 81 MG TAB.CHEW PO (08:07)
[2017-06-01] MEDS: Calcium (Elemental) 500 MG Tablet 1000 MG PO (08:07)
--- NOTE | 2017-06-01 10:12 | CASEMGMT ---
Brief interview for mental status (BIMS) and resident mood interview (PHQ-9) completed on this day. BIMS score 13/15. PHQ-9 score 05/29
--- NOTE | 2017-06-01 13:46 | NURSING ---
Addendum entered by Yahaira Barragan 06/01/17 16:23: Dr Martines aware of UA results NNO Original Note: Pt c/o burning and itching with urination. Dr Martines aware N.O. UA and culture.
[2017-06-01 14:51] LABS: Bacteria 0 SEEN /hpf (None Seen); Mucous, Urine 0 SEEN /hpf (<or=2+); Red Blood Cells-Urine 0 SEEN /hpf (0-5); White Blood Cells 0 SEEN /hpf (0-5)
[2017-06-01 14:53] LABS: Color, Urine Yellow (Yellow); Glucose, Dipstick Normal (Normal); Ketone-Dipstick Negative (Negative); Leukocyte Esterase-Dipstick Negative /ul (Negative); Nitrite-Dipstick Negative (Negative); Occult Blood-Urine Negative /ul (Negative); Protein-Dipstick Negative (Negative); Urine Bilirubin Dipstick Negative (Negative); Urine Clarity Clear (Clear); Urine Urobilinogen Normal (Normal); Urine pH 6.5 (5.0 - 8.0)
[2017-06-01 15:00] LABS: Squamous Epithelial Cells - UA 0-5 SEEN /hpf (5-10)
[2017-06-01 15:29] VITALS: BP 98/53; PULSE 76; RESP 16; TEMP 36.6; O2SAT 97
[2017-06-01] MEDS: Naproxen 250 MG Tablet PO (19:33)
[2017-06-01] MEDS: Atorvastatin Calcium 10 MG Tablet PO (19:33)
[2017-06-01 19:38] VITALS: PULSE 76; RESP 15; O2SAT 98
[2017-06-02] MEDS: Glucerna Shake 120 ML LIQUID PO ×4 (05:00→20:11)
[2017-06-02] MEDS: Polyethylene Glycol 3350 17 GM PACKET PO (05:00)
[2017-06-02] MEDS: Senna/Docusate Sodium 1 Tablet PO (05:01)
[2017-06-02] MEDS: HYDROCHLOROTHIAZIDE 12.5 MG CAPSULE PO (05:01)
[2017-06-02] MEDS: Losartan Potassium 100 MG Tablet PO (05:02)
[2017-06-02] MEDS: Nystatin Powder 15gm Bottle 1 APPLIC TOPICAL (05:02)
[2017-06-02] MEDS: Enoxaparin 30 MG/0.3 ML Syringe SC (05:02)
[2017-06-02] MEDS: Tamoxifen 10 MG Tablet 20 MG PO (05:04)
[2017-06-02 06:36] LABS: Bedside Glucose 118 mg/dL (70-110)
[2017-06-02] MEDS: Aspirin 81 MG TAB.CHEW PO (08:23)
[2017-06-02] MEDS: Calcium (Elemental) 500 MG Tablet 1000 MG PO (08:23)
--- NOTE | 2017-06-02 10:42 | PCM.DC ---
You will use the following diet at home:: No restrictions, Regular Your food should be the consistency of: Regular Your liquids should be the consistency of: Regular/Thin Discharge Activity: Return to Normal Activity, May Drive, May Shower, Use Walker Weight Bearing Status: Weight bearing as tolerated Call your doctor if you observe: Fever of 101 or Higher, Inability to urinate, Inability to have a bowel movement, Shortness of breath, Chest pain, Uncontrolled pain Allergies/Adverse Reactions: Allergies Penicillins Allergy (Verified 05/27/17 09:37) Hives Sulfa (Sulfonamide Antibiotics) Allergy (Verified 05/27/17 09:37) Hives tramadol Adverse Reaction (Verified 05/27/17 09:37) Upset Stomach AND HEADACHE Medications to take at Discharge Hydrochlorothiazide [Hctz] 12.5 mg PO DAILY 12/19/13 Losartan Potassium [Cozaar] 100 mg PO DAILY 12/19/13 Metformin HCl [Glucophage] 500 mg PO BIDCM 12/19/13 Calcium (Elemental) [Os-Florentin 500] 1,000 mg PO DAILY@0800 07/15/15 Cholecalciferol (Vitamin D3) [Vitamin D3] 5,000 unit PO DAILY 07/15/15 Simvastatin [Zocor] 20 mg PO QHS 07/15/15 Tamoxifen Citrate [Nolvadex] 20 mg PO DAILY 07/15/15 Acetaminophen [Tylenol] 500 - 1,000 mg PO Q6H PRN PRN #1 tablet 05/30/17 Aspirin [Aspirin, Baby] 81 mg PO DAILY@0800 05/30/17 Nystatin Powder [Mycostatin Powder] 1 applic TOPICAL 0600,2200 bottle 06/02/17 Primary Care Physician: Roxann Simmons MD [Primary Care Provider] - Please follow up with your Primary Care Physician in: 1 week. Proposed Discharge Date: 06/03/17
--- NOTE | 2017-06-02 10:44 | PCM.DC.SUM ---
Discharge Date and Diagnosis Date of Admission: 05/30/17 Date of Discharge: 06/03/17 - Secondary Discharge Diagnosis Chronic Problems Breast cancer (Chronic) Degenerative joint disease (DJD) of lumbar spine (Chronic) Hypertension (Chronic) Diabetes mellitus type 2 in nonobese (Chronic) Hyperlipidemia (Chronic) Depression (Chronic) Hospital Course and Treatment Imaging Results: 06/02/17 10:29 Diet: Regular Diet Food consistency:: Regular Liquid Consistency:: Regular/Thin Is pt able to select menu?: Yes Labs (Last 48 Hours) 06/01/17 06/01/17 06/02/17 06:39 14:30 06:33 Urine Color Yellow Urine Clarity Clear Urine pH 6.5 Ur Specific [place] 1.010 Urine Protein Negative Urine Glucose (UA) Normal Urine Ketones Negative Urine Occult Blood Negative Urine Nitrite Negative Urine Bilirubin Negative Urine Urobilinogen Normal Ur Leukocyte Esterase Negative Urine RBC 0 SEEN Urine WBC 0 SEEN Ur Squamous Epith Cells 0-5 SEEN Urine Bacteria 0 SEEN Urine Mucus 0 SEEN POC Glucose 136 H 118 H Operations: None Procedures: None Summary of Care Provided: The patient is a 81 year old Female with below past medical history hospitalized for acute change in mental status, thorough evaluation found no obvious cause, admitted to TCU with debility, here for rehabilitation, strengthening, prior to discharge home alone. Discharge home alone. Discharge Diet: No Restrictions Discharge Activity: Return to Normal Activity, May Drive, May Shower, Use Walker Weight Bearing Status: Weight bearing as tolerated Call your doctor if you observe: Fever of 101 or Higher, Inability to urinate, Inability to have a bowel movement, Shortness of breath, Chest pain, Uncontrolled pain Home Medications: Medications to take at Discharge Hydrochlorothiazide [Hctz] 12.5 mg PO DAILY 12/19/13 Losartan Potassium [Cozaar] 100 mg PO DAILY 12/19/13 Metformin HCl [Glucophage] 500 mg PO BIDCM 12/19/13 Calcium (Elemental) [Os-Florentin 500] 1,000 mg PO DAILY@0800 07/15/15 Cholecalciferol (Vitamin D3) [Vitamin D3] 5,000 unit PO DAILY 07/15/15 Simvastatin [Zocor] 20 mg PO QHS 07/15/15 Tamoxifen Citrate [Nolvadex] 20 mg PO DAILY 07/15/15 Acetaminophen [Tylenol] 500 - 1,000 mg PO Q6H PRN PRN #1 tablet 05/30/17 Aspirin [Aspirin, Baby] 81 mg PO DAILY@0800 05/30/17 Nystatin Powder [Mycostatin Powder] 1 applic TOPICAL 0600,2200 bottle 06/02/17 Primary Care Physician: Roxann Simmons MD [Primary Care Provider] - Please follow up with your Primary Care Physician in: 1 week. Disposition: Home Minutes spent on discharge:: 15 Patient Condition:: Good Medical Necessity - Tobacco Use Smoking Status: Never smoker Tobacco Use: Non-smoker Meaningful Use Info Meaningful Use Diagnoses (Choose all that apply): None applicable
--- NOTE | 2017-06-02 14:37 | CASEMGMT ---
Social Work Meeting with resident and resident family. Resident requesting for discharge date to be set for 06/03/17. Spoke with staff/therapy, all agreeable to discharge on 06/03/17. Resident plans to discharge home alone with family for support as needed. Resident family to provide transportation home for resident at time of discharge. No further therapy recommended at this time. Support given. Proposed discharge date: 06/03/17 PLAN: Discharge home alone. Danielle CASTELLON, VISUAL DEVELOPER
[2017-06-02 15:04] VITALS: BP 100/54; PULSE 76; RESP 16; TEMP 36.7; O2SAT 97
[2017-06-02] MEDS: Atorvastatin Calcium 10 MG Tablet PO (20:11)
[2017-06-02] MEDS: Acetaminophen 500 MG Tablet 1000 MG PO (20:49)
[2017-06-02 21:00] VITALS: PULSE 76; RESP 17; O2SAT 97
[2017-06-03] MEDS: Aspirin 81 MG TAB.CHEW PO (05:31)
[2017-06-03] MEDS: HYDROCHLOROTHIAZIDE 12.5 MG CAPSULE PO (05:31)
[2017-06-03] MEDS: Calcium (Elemental) 500 MG Tablet 1000 MG PO (05:31)
[2017-06-03] MEDS: Losartan Potassium 100 MG Tablet PO (05:32)
[2017-06-03] MEDS: Tamoxifen 10 MG Tablet 20 MG PO (05:32)
[2017-06-03] MEDS: Naproxen 250 MG Tablet PO (05:37)
[2017-06-03] MEDS: Glucerna Shake 120 ML LIQUID PO (05:38)
[2017-06-03 06:18] VITALS: BP 110/60; PULSE 70; RESP 18; TEMP 36.8; O2SAT 96
[2017-06-03 07:06] LABS: Bedside Glucose 117 mg/dL (70-110)
--- NOTE | 2017-06-04 10:11 | CASEMGMT ---
Insurance Notified [facility] that pt d/c on 06/03/17. Auth # [id number] RAVINDER Enriquez
--- NOTE | 2017-06-12 09:39 | MDS.RN ---
Information for the mds was obtained from review of the clinical record, interview of resident, staff, and direct observation of resident's care.
== END 2017-06-03 08:46 | disposition home or self-care (01) | DRG 948 ==
PROVIDERS: Admitting Provider Family Medicine Geriatric Medicine; Family Provider Internal Medicine; PCP Internal Medicine; Visit Provider Family Medicine Geriatric Medicine
DX: R53.81 Other malaise (principal); E11.9 Type 2 diabetes mellitus without complications; I10 Essential (primary) hypertension; M47.896 Other spondylosis, lumbar region; I25.10 Atherosclerotic heart disease of native coronary artery without angina pectoris; E78.5 Hyperlipidemia, unspecified; Z85.3 Personal history of malignant neoplasm of breast; Z79.899 Other long term (current) drug therapy; Z79.84 Long term (current) use of oral hypoglycemic drugs; Z79.82 Long term (current) use of aspirin
CPT/HCPCS: 36415; 80048; 81001; 82962; 85025; 87077; 87086; 87088; 87186; 97110; 97116; 97162; 97166; 97530; 97535; 97802

== ENCOUNTER 2017-06-26 10:01 | Day surgery (SDC) | payer MEDICARE, SELFPAY ==
[2017-06-26] VITALS (7 sets, daily range): BP systolic 125–148; BP diastolic 42–95; PULSE 68–84; RESP 14–16; TEMP 36.2–36.6; O2SAT 92–100; BMI 27.0
--- NOTE | 2017-06-26 | GALL_PTH ---
PATIENT: KARLA [place]AR [place] [facility] [id number] AGE/SX: 81/F ROOM: RE06/26/[address]: Dr. Hans Morataya MD : [id number] BED: DIS: 06/26/2017 SPEC #: [id number] RECD: 06/26/17 14:51 STATUS: NICOLETTE NEETU #: [id number] SIOBHAN: 06/26/17 00:[address]: Hans Morataya DEPT: SURGICAL PATHOLOGY RECD BY: Michelet Fleming ENTERED: 06/26/17 14:52 SP TYPE: KAYLA MICHAEL DR: Dr. Roxann Simmons MD Tissues: Gallbladder, NOS Procedures: Surgery Specimen Level III HEADER OPERATION: Laparoscopic cholecystectomy PRE-OP DIAGNOSIS: Calculus of gallbladder with acute on chronic cholecystitis without obstruction; nausea; back pain with radiation TISSUE SUBMITTED: Gallbladder MICROSCOPIC DIAGNOSIS Gallbladder, cholecystectomy: Chronic cholecystitis and cholelithiasis. AM:chyna 06/27/17 MICROSCOPIC DESCRIPTION Slides are reviewed. GROSS DESCRIPTION Received is one container labeled with the patient's name and designated gallbladder. The specimen consists of a gallbladder measuring 9.5 x 4 x 3.2 cm. The external surface is smooth and glistening. Focally, it is granular, hemorrhagic and contains cautery artifact. The lumen of the gallbladder contains a large amount of mucoid bile and multiple minute mulberry-shaped calculi ranging in size from <0.1 to 0.1 cm in greatest dimension. The gallbladder mucosa is bile-stained and free of mass lesions. The gallbladder wall averages 0.1 cm in thickness and is free of mass lesions. Grounds Crew Supervisor sections of the gallbladder and the cystic duct are submitted in one cassette. / AM:chyna 06/26/17 TC:3 CPT: 98696
--- NOTE | 2017-06-26 10:12 | EKG12_ITS ---
Test Reason : PREOP Blood Pressure : / mmHG Vent. Rate : 071 BPM Atrial Rate : 071 BPM P-R Int : 126 ms QRS Dur : 078 ms QT Int : 398 ms P-R-T Axes : 051 -43 029 degrees QTc Int : 432 ms Sinus rhythm with marked sinus arrhythmia Left axis deviation Septal infarct , age undetermined Abnormal ECG When compared with ECG of 27-MAY-2017 09:28, Premature ventricular complexes are no longer Present Septal infarct is now Present Nonspecific T wave abnormality, improved in Inferior leads Confirmed by LAKIA SUMMERS, ADDIS ([id number]), editor index SANDRA FIORE ([id number]) on 06/29/2017 1:16:36 PM Referred By: Hans Morataya Confirmed By:ADDIS DORMAN MD
[2017-06-26 10:50] LABS: Hemoglobin A1c 5.9 % (4.2-6.3)
[2017-06-26 10:51] LABS: Bedside Glucose 84 mg/dL (70-110)
[2017-06-26] MEDS: Clindamycin 900 MG/50 ML BAG 75 MG IV (11:36)
--- NOTE | 2017-06-26 11:44 | DCINST_ITS ---
Discharge Diet: Light diet - advance as tolerated Discharge Activity: May Not Drive - for 2-3 days or while taking narcotic pain medications., - - Do not drive, work heavy equipment or sign legal documents for 24 hours. May shower in (days): 1 - with the bandage in place. Additional Activity Instructions:: Pain medication may cause nausea. You should typically eat light foods as you take your pain medications. Pain medication may also cause constipation. If this is a problem for you, please discuss with your doctor. Call your doctor if your incision/area has: Continuous Slow Oozing, Sudden Increased Bleeding, Increased Pain/ Swelling, Increased Redness, Foul Smelling Discharge Call your doctor if you observe: Fever of 101 or Higher Suture Line Care: Avoid Pulling/Pushing, Avoid Pinching/Bending Additional Dressing/Incision Instructions:: Leave operative bandaids on for 2 days. When you remove dressing, leave Steri-Strips on until your follow-up appointment, or until the Steri-Strips fall off on their own. Allergies/Adverse Reactions: Allergies Penicillins Allergy (Verified 06/26/17 10:26) Hives Sulfa (Sulfonamide Antibiotics) Allergy (Verified 06/26/17 10:26) Hives tramadol Adverse Reaction (Verified 06/22/17 08:21) Upset Stomach AND HEADACHE Medications to take at Discharge Hydrochlorothiazide [Hctz] 12.5 mg PO DAILY 12/19/13 Losartan Potassium [Cozaar] 100 mg PO DAILY 12/19/13 Metformin HCl [Glucophage] 500 mg PO BIDCM 12/19/13 Calcium (Elemental) [Os-Florentin 500] 1,000 mg PO DAILY@0800 07/15/15 Cholecalciferol (Vitamin D3) [Vitamin D3] 5,000 unit PO DAILY 07/15/15 Simvastatin [Zocor] 20 mg PO QHS 07/15/15 Tamoxifen Citrate [Nolvadex] 20 mg PO DAILY 07/15/15 Aspirin [Aspirin, Baby] 81 mg PO DAILY@0800 05/30/17 Oxycodone HCl/Acetaminophen [Percocet 5/325] 1 - 2 tab PO Q4H PRN PRN 4 Days # 30 tab 06/26/17 The following prescriptions were given: Oxycodone HCl/Acetaminophen [Percocet 5/325] 1 - 2 tab PO Q4H PRN PRN 4 Days # 30 tab PRN Reason: Pain Primary Care Physician: Roxann Simmons MD [Primary Care Provider] - Please Follow Up With: Hans Morataya MD - Please call [phone] to schedule an appointment. When: 7 days after your surgery.
--- NOTE | 2017-06-26 11:44 | PCM.OPRPT ---
Problem List (1) Calculus of gallbladder with acute on chronic cholecystitis without obstruction Status: Acute (2) Nausea Status: Acute (3) Back pain with radiation Status: Acute Report of Operation Date of Procedure: 06/26/17 Pre-Operative Diagnosis: k80.12 calculus of the gallbladder with acute on chronic cholecystitis without obstruction. r11.0 nausea. m54.9 right-sided back pain with radiation Post-Operative Diagnosis: same Surgery/Procedure Performed:: [id number] laparoscopic cholecystectomy Type of Anesthesia:: General Anesthesiologist: Chadwick Garcia Description of Procedure: Patient was brought in the operating room placed in the supine position under excellent general endotracheal intubation the abdomen was sterilely prepped and draped in the usual fashion. Local was injected above the umbilicus a curvilinear incision was made. Dissection was carried down to the fascia. The fascia was grasped with a [place]. Varies needle was placed inside the abdomen. The abdomen was insufflated to 15 torr. A 10/12 trocar was placed without difficulty. Patient was placed in the head up position. A subxiphoid #5 trocar was placed, inferior to this another #5 trocar, and laterally on the right side a #5 trocar was placed. All of these under direct visualization without injury to underlying structures. Patient had dense adhesions in the right upper quadrant these were taken down sharply with scissors and cautery. Fundus of the gallbladder was grasped retracted in cephalad direction. Moderate amount of adhesions were taken off of the gallbladder. I dissected out the cystic duct and cystic artery and posteriorly to the liver. I place hemoclips proximally and distally on the duct. I ligated the duct. I placed hemoclips proximally and distally on the artery. I ligated the artery. I deliver the gallbladder from the gallbladder bed with use of electrocautery. There was no spillage of bile or stones. I placed a specimen and a specimen bag. Removed through the umbilicus port. Irrigated the right upper quadrant. I used electrocautery of the liver bed for good hemostasis. I remove the trochars under direct visualization. Good hemostasis was noted. I closed the fascia the umbilical port with a [id number] stitch of 0 Vicryl. Skin incisions were closed with subcuticular stitches of 4-0 Monocryl. Steri-Strips are applied sterile dressings were applied and the patient tolerated the procedure well. - Admit VTE Documentation VTE Present on Admission: No VTE Mechan Device Prophylaxis: SCD's VTE Pharm Prophylaxis ordered?: No Reason prophylaxis not ordered:: Treatment Not Indicated
--- NOTE | 2017-06-26 11:47 | OP.PCM_ITS ---
Problem List (1) Calculus of gallbladder with acute on chronic cholecystitis without obstruction Status: Acute (2) Nausea Status: Acute (3) Back pain with radiation Status: Acute Report of Operation Date of Procedure: 06/26/17 Pre-Operative Diagnosis: k80.12 calculus of the gallbladder with acute on chronic cholecystitis without obstruction. r11.0 nausea. m54.9 right-sided back pain with radiation Post-Operative Diagnosis: same Surgery/Procedure Performed:: [id number] laparoscopic cholecystectomy Type of Anesthesia:: General Anesthesiologist: Chadwick Garcia Description of Procedure: Patient was brought in the operating room placed in the supine position under excellent general endotracheal intubation the abdomen was sterilely prepped and draped in the usual fashion. Local was injected above the umbilicus a curvilinear incision was made. Dissection was carried down to the fascia. The fascia was grasped with a [place]. Varies needle was placed inside the abdomen. The abdomen was insufflated to 15 torr. A 10/12 trocar was placed without difficulty. Patient was placed in the head up position. A subxiphoid #5 trocar was placed, inferior to this another #5 trocar, and laterally on the right side a #5 trocar was placed. All of these under direct visualization without injury to underlying structures. Patient had dense adhesions in the right upper quadrant these were taken down sharply with scissors and cautery. Fundus of the gallbladder was grasped retracted in cephalad direction. Moderate amount of adhesions were taken off of the gallbladder. I dissected out the cystic duct and cystic artery and posteriorly to the liver. I place hemoclips proximally and distally on the duct. I ligated the duct. I placed hemoclips proximally and distally on the artery. I ligated the artery. I deliver the gallbladder from the gallbladder bed with use of electrocautery. There was no spillage of bile or stones. I placed a specimen and a specimen bag. Removed through the umbilicus port. Irrigated the right upper quadrant. I used electrocautery of the liver bed for good hemostasis. I remove the trochars under direct visualization. Good hemostasis was noted. I closed the fascia the umbilical port with a [id number] stitch of 0 Vicryl. Skin incisions were closed with subcuticular stitches of 4-0 Monocryl. Steri-Strips are applied sterile dressings were applied and the patient tolerated the procedure well. - Admit VTE Documentation VTE Present on Admission: No VTE Mechan Device Prophylaxis: SCD's VTE Pharm Prophylaxis ordered?: No Reason prophylaxis not ordered:: Treatment Not Indicated
[2017-06-26] MEDS: Bupivacaine Mpf 0.5% 30 ML VIAL (11:53)
[2017-06-26 13:21] LABS: Bedside Glucose 100 mg/dL (70-110)
[2017-06-26] MEDS: oxyCODONE 5 MG Tablet PO (14:05)
== END 2017-06-26 15:04 | disposition home or self-care (01) ==
LOC: SDC 10:03 → AC 10:04
PROVIDERS: Anesthesiology; Family Provider Internal Medicine; PCP Internal Medicine; Visit Provider Surgery
PROC: (CPT 47562; principal; 2017-06-26 11:40)
DX: K80.10 Calculus of gallbladder with chronic cholecystitis without obstruction (principal); R11.0 Nausea; M54.9 Dorsalgia, unspecified; I10 Essential (primary) hypertension; E78.5 Hyperlipidemia, unspecified; E11.9 Type 2 diabetes mellitus without complications; F32.9 Major depressive disorder, single episode, unspecified; Z87.891 Personal history of nicotine dependence; Z85.3 Personal history of malignant neoplasm of breast
CPT/HCPCS: 47562; 36415; 82962; 83036; 88304; 93005; J7120; J2405

== ENCOUNTER → 2024-12-31 05:00 | Outpatient (REF) | payer MEDICARE, SELFPAY ==
[2024-12-31 08:50] LABS: Hematocrit 34.8 % (37-47); Hemoglobin 11.0 g/dL (12.0-15.0); Mean Corp Hgb Conc 31.6 g/dL (32-36); Mean Corpuscular Volume 91.1 fL (81-99); Mean Platelet Vol. 9.3 fl (6.2-12.0); Platelet Count 257 K/mm3 (150-450); RBC Distribution Width CV 15.2 % (11.6-14.6); RBC Distribution Width SD 50.8 fl (35.1-43.9); Red Blood Count 3.82 M/mm3 (4.2-5.4); White Blood Count 7.9 K/mm3 (4.4-11.0)
[2024-12-31 09:24] LABS: Cholesterol 88 mg/dL (<=200); Low Density Lipoprotein Calc. 29 mg/dL; Triglycerides 87 mg/dL; Very Low Density Lipoprotein 17 mg/dL (5-40); Vitamin D,25 Hydroxy 84.1 ng/mL (30-100); cholesterol:hdl ratio screen 2.10
[2024-12-31 09:31] LABS: Anion Gap 11 (5-15); BUN 50 mg/dL (4-19); BUN/Creat Ratio 23.8 RATIO (10-20); Calcium,Total 11.3 mg/dL (7.6-11.0); Carbon Dioxide 34.8 mmol/L (21.0-32.0); Chloride 88 mmol/L (98-108); Glucose 103 mg/dL (70-99); Potassium 2.4 mmol/L (3.3-5.1)
== END ==
LOC: OLS.WCC 05:00
PROVIDERS: PCP Internal Medicine; Visit Provider Family Medicine
DX: I50.9 Heart failure, unspecified (principal); J44.9 Chronic obstructive pulmonary disease, unspecified; G93.41 Metabolic encephalopathy; E78.5 Hyperlipidemia, unspecified
CPT/HCPCS: 36415; 80048; 80061; 82306; 85027